=== PATIENT | female | born 2000 | race Caucasian/White ===

== ENCOUNTER 2019-07-13 11:44 | Observation (INO) | payer BC, SELFPAY ==
[2019-07-13 12:16] VITALS: BP 127/64; PULSE 86
[2019-07-13 12:20] VITALS: TEMP 37.3
[2019-07-13 12:40] VITALS: BMI 22.4
--- NOTE | 2019-07-13 14:07 | OBADM ---
This patient, Jayne Bay, admitted to the OB room OB Post [facility] for observation. Patient/family oriented to hospital policies and general routines including ID bracelet, bed and alarms, visiting hours, pain management, procedures, bathroom and other care routines, personal items, smoking policy, room service/diet, and visiting hours. Patient/Family are encouraged to report perceived risks to care and to ask questions if they do not understand what they are told or what they should do.
--- NOTE | 2019-07-13 14:22 | PC.NURSE ---
1241- called,informed pt came in c/o mid-lower back pain and round ligament pain. 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 No contractions noted. Order received to discharge pt home, have her call the office for a note to be off of work until further notice and for them to set up physical therapy.
--- NOTE | 2019-07-18 10:39 | PM.OBTRLD ---
OB - Triage/Final Diagnosis Visit Information Reason for evaluation: threatened labor
== END 2019-07-13 13:05 | disposition home or self-care (01) ==
PROVIDERS: Admitting Provider Obstetrics & Gynecology; PCP Obstetrics & Gynecology; Visit Provider Obstetrics & Gynecology
DX: O47.02 False labor before 37 completed weeks of gestation, second trimester (principal); Z3A.22 22 weeks gestation of pregnancy
CPT/HCPCS: G0378; G0379

== ENCOUNTER 2019-08-26 11:21 | Outpatient (CLI) | payer BC, SELFPAY ==
[2019-08-26 12:50] LABS: Hematocrit 33.3 % (37.0-47.0); Hemoglobin 11.3 g/dL (12.0-15.0)
[2019-08-26 13:04] LABS: Glucose 1 Hour PP 50gm Dose 106 mg/dL
[2019-08-26 13:44] LABS: HIV 1/2 Ab P24 Ag Result Negative (Negative)
== END 2019-08-26 11:22 | disposition home or self-care (01) ==
LOC: ANHLAB 11:25
PROVIDERS: Visit Provider Obstetrics & Gynecology
DX: Z36.89 Encounter for other specified antenatal screening (principal)
CPT/HCPCS: 36415; 82947; 85014; 85018; 86703; G0432

== ENCOUNTER 2019-10-01 22:02 | Observation (INO) | payer BC, SELFPAY ==
[2019-10-01 22:27] VITALS: BP 108/80; PULSE 95
[2019-10-01 22:31] VITALS: BP 114/74; PULSE 110
[2019-10-01 22:45] VITALS: BP 122/74; PULSE 91
[2019-10-01 23:01] VITALS: BP 124/80; PULSE 94
[2019-10-01 23:11] LABS: Add Urine Microscopic? YES; Appearance Urine Cloudy (Clear); Bilirubin Urine Negative (Negative); Blood Urine 1+ (Negative); Color Urine Yellow (Yellow); Glucose Urine UA Negative (Negative); Ketones Urine Trace mg/dL (Negative); Leukocyte Esterase Ur 3+ LEU/UL (Negative); Mucus Urine Few /lpf; Nitrate Urine Negative (Negative); Protein Urine 1+ mg/dL (Negative); RBC Urine 21-50 /hpf (0-2); Specific Grav Ur 1.025 (1.001-1.035); Squamous Epithelial Cell Urine Many /hpf (Few); WBC Urine >75 /hpf
[2019-10-01 23:15] VITALS: BP 125/75; PULSE 89
[2019-10-01 23:30] VITALS: BP 123/73; PULSE 88
--- NOTE | 2019-10-01 23:50 | LDADM ---
This patient, Jayne Bay, was admitted to OB Post 117 on 10/01/19 at 22:02. Plans for labor, pain management and were discussed with patient. Patient/family oriented to hospital policies and general routines including ID bracelet, bed and alarms, visiting hours, pain management, procedures, bathroom and other care routines, personal items, smoking policy, room service/diet and guest tray routines, infant security routines, and visiting hours. Patient/Family are encouraged to report perceived risks to care and to ask questions if they do not understand what they are told or what they should do. See OBIX for further documentation.
--- NOTE | 2019-10-02 00:16 | PC.NURSE ---
4294- Spoke with Dr. Sarah. pt came in c/o lower abd pain and lower back pain and pelvic pain since 5 pm. pt states that she worked 8 hours on her feet today. UA sent- UA results reviewed, culture sent. per Dr. Sarah will wait for culture results before treating pt. tracing reviewed. ok to d/c pt home. office will f/u with pt with culture results. pt educated on importance of oral hydration.
--- NOTE | 2019-10-02 21:14 | PM.OBTRLD ---
OB - Triage/Final Diagnosis Evaluation Laboratory results: Laboratory Tests 10/01/19 22:59 Urine Color Yellow Urine Appearance Cloudy H Urine pH 6.0 Ur Specific [place] 1.025 Urine Protein 1+ H Urine Glucose (UA) Negative Urine Ketones Trace Ur Blood (Man) 1+ H Urine Nitrate Negative Urine Bilirubin Negative Urine Urobilinogen 4.0 H Leukocyte Esterase Rfl 3+ H Urine RBC 21-50 H Urine WBC >75 H Ur Squamous Epith Cells Many H Urine Mucus Few H Vital signs: Vital Signs - 24 hr 10/01/19 22:27 10/01/19 22:31 10/01/19 22:45 Pulse Rate 95 110 H 91 Blood Pressure 108/80 114/74 122/74 10/01/19 23:01 10/01/19 23:15 10/01/19 23:30 Pulse Rate 94 89 88 Blood Pressure 124/80 125/75 123/73 Final Diagnosis (1) Abdominal pain: Code(s): R10.9 - Unspecified abdominal pain Status: Acute
== END 2019-10-02 00:10 | disposition still patient (30) ==
PROVIDERS: Admitting Provider Obstetrics & Gynecology; Visit Provider Obstetrics & Gynecology
DX: O26.899 Other specified pregnancy related conditions, unspecified trimester (principal); R10.9 Unspecified abdominal pain; Z3A.00 Weeks of gestation of pregnancy not specified
CPT/HCPCS: 81001; 87077; 87086; 87088; G0378; G0379

== ENCOUNTER 2019-10-27 16:13 | Inpatient (IN) | payer BC, SELFPAY ==
[2019-10-27] VITALS (60 sets, daily range): BP systolic 88–142; BP diastolic 34–99; PULSE 78–136; TEMP 36.2–36.9; O2SAT 94–100; BMI 24.8
[2019-10-27] MEDS: MORPHINE SULFATE 4 MG/ML INJ IM (16:37)
[2019-10-27] MEDS: LACTATED RINGERS 500 ML 999 ML IV CONT (19:15)
--- NOTE | 2019-10-27 19:27 | LDADM ---
This patient, Jayne Bay, was admitted to Labor/Delivery/Recovery 107 on 10/27/19 at 16:13. Plans for labor, pain management and were discussed with patient. Patient/family oriented to hospital policies and general routines including ID bracelet, bed and alarms, visiting hours, pain management, procedures, bathroom and other care routines, personal items, smoking policy, room service/diet and guest tray routines, security routines, and visiting hours. Patient/Family are encouraged to report perceived risks to care and to ask questions if they do not understand what they are told or what they should do. See OBIX for further documentation.
[2019-10-27 19:47] LABS: Basophils Absolute Auto 0.1 K/mm3 (0.0-0.1); Basophils Percent Auto 0.4 % (0.2-1.2); Eosinophils Percent Auto 0.1 % (0-4.4); Hematocrit 33.3 % (37.0-47.0); Hemoglobin 11.4 g/dL (12.0-15.0); Immature Granulocyte Absolute 0.11 K/mm3 (0.00-0.031); Immature Granulocyte Percent A 0.8 % (0-0.5); Lymphocytes Absolute Auto 1.83 K/mm3 (0.9-3.2); Lymphocytes Percent Auto 13.5 % (18.3-44.2); Mean Corpuscular HGB Conc 34.2 g/dl (32-36); Mean Corpuscular Hemoglobin 30.6 pg (26-34); Mean Corpuscular Volume 89.3 fl (80-100); Mean Platelet Volume 12.9 fl (7.4-10.4); Monocytes Absolute Auto 0.8 K/mm3 (0.1-0.6); Monocytes Percent Auto 6.2 % (2.6-8.5); Neutrophils Absolute Auto 10.7 K/mm3 (1.3-6.7); Platelet Count Result 200 k/mm3 (150-375); Red Blood Count 3.73 M/mm3 (4.2-5.4); White Blood Count 13.5 K/mm3 (4.5-10.0)
[2019-10-27 19:58] LABS: Alanine Aminotransferase 8 U/L (4-35); Albumin Level 3.7 g/dL (3.5-5.1); Alkaline Phosphatase 151 U/L (38-126); Aspartate Amino Transferase 21 U/L (14-36); Bilirubin,Total 0.5 mg/dL (0.2-1.3); Blood Urea Nitrogen 13 mg/dL (7-17); Calcium 8.9 mg/dL (8.4-10.2); Carbon Dioxide 19 mmol/L (22-30); Chloride 100 mmol/L (98-107); Estimated CRCL calculation 124 ml/min; Estimated Glomerular Filt Rate > 60; Glucose 75 mg/dL (65-105); Sodium 128 mmol/L (137-145)
[2019-10-27] MEDS: MORPHINE SULFATE 4 MG/ML INJ IV PUSH (20:02)
[2019-10-27] MEDS: LACTATED RINGERS 1,000 ML 125 ML IV CONT ×2 (20:45→23:15)
--- NOTE | 2019-10-27 21:43 | WPDANESEPPF ---
Anes - Initial Pre Proc Eval Procedure: labor epidural Date/Time: 10/27/19 21:43 Surgeon: Nataly Lynch MD Pre Op Diagnosis: labor pain Pre Op Diagnosis: Contractions Patient Data Age: 19 Gender: F Height: 1.7 m Weight: 72 kg Last Vital Signs Temp 36.8 C 10/27/19 20:00 Pulse 89 10/27/19 21:40 BP 93/52 L 10/27/19 21:40 Pulse Ox 95 10/27/19 21:41 Allergies Allergy/AdvReac Type Severity Reaction Status Date / Time No Known Allergies Allergy Verified 10/24/19 14:57 Home Medications Medication Instructions Recorded Confirmed Type PNV cmb#95-ferrous fumarate-FA 1 tablet PO DAILY 10/24/19 10/24/19 History [] Laboratory Tests 10/27/19 10/27/19 10/27/19 19:01 19:01 19:01 WBC 13.5 K/mm3 H K/mm3 (4.5-10.0) RBC 3.73 M/mm3 L M/mm3 (4.2-5.4) Hgb 11.4 g/dL L g/dL (12.0-15.0) Hct 33.3 % L % (37.0-47.0) MCV 89.3 fl fl (80-100) MCH 30.6 pg pg (26-34) MCHC 34.2 g/dl g/dl (32-36) RDW 13.0 % % (11.5-14.5) Plt Count 200 k/mm3 k/mm3 (150-375) MPV 12.9 fl H fl (7.4-10.4) Immature Gran % (Auto) 0.8 % H % (0-0.5) Neut % (Auto) 79.0 % H % (45.5-73.1) Lymph % (Auto) 13.5 % L % (18.3-44.2) [place] % (Auto) 6.2 % % (2.6-8.5) Eos % (Auto) 0.1 % % (0-4.4) Baso % (Auto) 0.4 % % (0.2-1.2) Lymph # (Auto) 1.83 K/mm3 K/mm3 (0.9-3.2) [place] # (Auto) 0.8 K/mm3 H K/mm3 (0.1-0.6) Eos # (Auto) 0.0 K/mm3 K/mm3 (0-0.3) Baso # (Auto) 0.1 K/mm3 K/mm3 (0.0-0.1) Abs Immat Gran (auto) 0.11 K/mm3 H K/mm3 (0.00-0.031) Absolute Neuts (auto) 10.7 K/mm3 H K/mm3 (1.3-6.7) Absolute Nucleated RBC 0.0 K/mm3 K/mm3 (0.0-0.012) Nucleated RBC % 0.0 % % (0.0-0.2) Sodium 128 mmol/L L mmol/L (137-145) Potassium 4.0 mmol/L mmol/L (3.4-5.0) Chloride 100 mmol/L mmol/L (98-107) Carbon Dioxide 19 mmol/L L mmol/L (22-30) Anion Gap 13.0 mmol/L mmol/L (7-16) BUN 13 mg/dL mg/dL (7-17) Creatinine 0.60 mg/dL L mg/dL (0.7-1.0) Estim Creat Clear Calc 124 ml/min ml/min Estimated GFR > 60 (59 - ) Glucose 75 mg/dL mg/dL (65-105) Calcium 8.9 mg/dL mg/dL (8.4-10.2) Total Bilirubin 0.5 mg/dL mg/dL (0.2-1.3) AST 21 U/L U/L (14-36) ALT 8 U/L U/L (4-35) Alkaline Phosphatase 151 U/L H U/L (38-126) Total Protein 7.0 g/dL g/dL (6.3-8.2) Albumin 3.7 g/dL g/dL (3.5-5.1) RPR Pending Blood Type Antibody Screen 10/27/19 19:01 WBC RBC Hgb Hct MCV MCH MCHC RDW Plt Count MPV Immature Gran % (Auto) Neut % (Auto) Lymph % (Auto) [place] % (Auto) Eos % (Auto) Baso % (Auto) Lymph # (Auto) [place] # (Auto) Eos # (Auto) Baso # (Auto) Abs Immat Gran (auto) Absolute Neuts (auto) Absolute Nucleated RBC Nucleated RBC % Sodium Potassium Chloride Carbon Dioxide Anion Gap BUN Creatinine Estim Creat Clear Calc Estimated GFR Glucose Calcium Total Bilirubin AST ALT Alkaline Phosphatase Total Protein Albumin RPR Blood Type O Positive Antibody Screen Negative Patient hx anesthesia problems: none Family hx anesthesia problems: none [facility] Family History Family History (Updated 10/24/19 @ 14:58 by Lucius Mcintosh RN) Other Unknown family medical history Social History Social History Smoking status: Never smoker Substance use: never Spiritual care concerns: No A
[2019-10-27] MEDS: ONDANSETRON INJ 4 MG/2 ML VIAL IV PUSH (22:44)
[2019-10-28] VITALS (91 sets, daily range): BP systolic 109–142; BP diastolic 51–105; PULSE 76–128; RESP 16–20; TEMP 36.3–37.4; O2SAT 97–100
[2019-10-28] MEDS: LACTATED RINGERS 1,000 ML 125 ML IV CONT ×2 (04:44→11:08)
[2019-10-28] MEDS: FAMOTIDINE 20 MG/2 ML VIAL IV PUSH (04:47)
[2019-10-28] MEDS: ONDANSETRON INJ 4 MG/2 ML VIAL IV PUSH (08:07)
--- NOTE | 2019-10-28 09:13 | PM.IMHP ---
H&P: HPI History of Present Illness Date/Time: 10/28/19 09:13 Chief complaint: Contractions Narrative: Jayne Bay is a 19 year old female at 37w4d who intially presented to L&D with contractions. She was noted to make cervical change and jeffery regularly. She states she had painful contractions, but now is more comfortable with spinal anesthesia in place. Review of Systems Constitutional: Constitutional: Reports no additional constitutional complaints Cardiovascular: Cardiovascular: Reports no additional cardiovascular complaints Respiratory: Respiratory: Reports no additional respiratory complaints Gastrointestinal: Gastrointestinal: Reports no additional gastrointestinal complaints Genitourinary: Genitourinary: Reports no additional female genitourinary complaints Musculoskeletal: Musculoskeletal: Reports no additional musculoskeletal complaints Neurologic: Reports system reviewed and no additional complaints, except as documented Psychiatric: Psychiatric: Reports no additional psychiatric complaints [facility] Surgical History Surgical History Hx of tonsillectomy Family History Family History Other Unknown family medical history Social History Social History Smoking status: Never smoker Substance use: never Spiritual care concerns: No Meds Home Medications and Allergies Home Medications Medication Instructions Recorded Confirmed Type PNV cmb#95-ferrous fumarate-FA 1 tablet PO DAILY 10/24/19 10/24/19 History [] Allergies Allergy/AdvReac Type Severity Reaction Status Date / Time No Known Allergies Allergy Verified 10/24/19 14:57 Vital Signs Vital Signs - 24 hr 10/27/19 15:52 10/27/19 16:01 10/27/19 16:31 Temperature Pulse Rate 100 90 83 Blood Pressure 142/99 H 136/88 124/86 Pulse Oximetry 10/27/19 16:45 10/27/19 17:01 10/27/19 17:31 Temperature 36.6 C Pulse Rate 81 84 Blood Pressure 132/74 134/83 Pulse Oximetry 10/27/19 17:50 10/27/19 18:01 10/27/19 18:31 Temperature 36.9 C Pulse Rate 82 82 Blood Pressure 134/85 129/79 Pulse Oximetry 10/27/19 19:01 10/27/19 19:31 10/27/19 20:00 Temperature 36.8 C Pulse Rate 81 81 Blood Pressure 131/82 129/74 Pulse Oximetry 10/27/19 20:01 10/27/19 20:31 10/27/19 20:42 Temperature Pulse Rate 80 78 82 Blood Pressure 131/77 126/69 134/71 Pulse Oximetry 10/27/19 21:01 10/27/19 21:16 10/27/19 21:21 Temperature Pulse Rate 89 Blood Pressure 141/88 H Pulse Oximetry 100 100 10/27/19 21:23 10/27/19 21:25 10/27/19 21:28 Temperature Pulse Rate 105 H 109 H 96 Blood Pressure 140/84 141/68 H 137/71 Pulse Oximetry 10/27/19 21:31 10/27/19 21:33 10/27/19 21:35 Temperature Pulse Rate 104 H 131 H 136 H Blood Pressure 122/70 106/58 L 104/60 Pulse Oximetry 100 10/27/19 21:36 10/27/19 21:37 10/27/19 21:40 Temperature 36.2 C L Pulse Rate 111 H 89 Blood Pressure 92/59 L 93/52 L Pulse Oximetry 96 10/27/19 21:41 10/27/19 21:43 10/27/19 21:46 Temperature Pulse Rate 91 79 Blood Pressure 96/46 L 88/66 L Pulse Oximetry 95 99 10/27/19 21:51 10/27/19 21:53 10/27/19 21:54 Temperature Pulse Rate 89 94 Blood Pressure 94/35 L 89/34 L Pulse Oximetry 94 10/27/19 21:55 10/27/19 21:58 10/27/19 21:59 Temperature Pulse Rate 83 93 Blood Pressure 96/41 L 115/70 Pulse Oximetry 94 10/27/19 22:01 10/27/19 22:04 10/27/19 22:08 Temperature Pulse Rate 93 96 93 Blood Pressure 121/57 L 117/60 119/62 Pulse Oximetry 94 10/27/19 22:09 10/27/19 22:14 10/27/19 22:16 Temperature Pulse Rate 92 Blood Pressure 117/70 Pulse Oximetry 97 98 10/27/19 22:19 10/27/19 22:24 10/27/19 22:29 Temperature Pulse Rate Blood Pres
[2019-10-28] MEDS: OXYTOCIN 30 UNITS/NS 500 ML 30 UNITS/500 ML BAG 6 UNITS IV CONT (09:15)
--- NOTE | 2019-10-28 10:58 | P.PNOB_ITS ---
OB - PN: Subj Subjective Date/time seen: 10/28/19 10:58 Patient reassessed, concern for breech presentation. Bedside US performed. Breech presentation confirmed. OB - PN: Obj Data Labs CBC & Chem 7: 10/27/19 19:01 10/27/19 19:01 Labs: Laboratory Results - last 24 hr 10/27/19 10/27/19 10/27/19 19:01 19:01 19:01 WBC 13.5 H RBC 3.73 L Hgb 11.4 L Hct 33.3 L MCV 89.3 MCH 30.6 MCHC 34.2 RDW 13.0 Plt Count 200 MPV 12.9 H Immature Gran % (Auto) 0.8 H Neut % (Auto) 79.0 H Lymph % (Auto) 13.5 L [place] % (Auto) 6.2 Eos % (Auto) 0.1 Baso % (Auto) 0.4 Lymph # (Auto) 1.83 [place] # (Auto) 0.8 H Eos # (Auto) 0.0 Baso # (Auto) 0.1 Abs Immat Gran (auto) 0.11 H Absolute Neuts (auto) 10.7 H Absolute Nucleated RBC 0.0 Nucleated RBC % 0.0 Sodium 128 L Potassium 4.0 Chloride 100 Carbon Dioxide 19 L Anion Gap 13.0 BUN 13 Creatinine 0.60 L Estim Creat Clear Calc 124 Estimated GFR > 60 Glucose 75 Calcium 8.9 Total Bilirubin 0.5 AST 21 ALT 8 Alkaline Phosphatase 151 H Total Protein 7.0 Albumin 3.7 Blood Type O Positive Antibody Screen Negative OB - PN A/P Assessment and Plan (1) Breech presentation: Code(s): O32.1XX0 - Maternal care for breech presentation, not applicable or unspecified Status: Acute Assessment and Plan: Discussed risks, benefits, and alternatives to management. Decision made to proceed with section for breech presentation Time Spent With Patient Time: Total time spent is greater than 50% in coordination of care (as documented) at patient's floor/unit and/or counseling patient:
[2019-10-28] MEDS: ceFAZolin 2 GM/D5W 50 ML 2 GM/50 ML BAG IVPB (11:08)
--- NOTE | 2019-10-28 12:44 | PM.OP ---
Procedure Note - Brief Procedure Note - Brief Date of procedure: 10/28/19 Pre-op diagnosis: Contractions Active Labor Breech presentation Post-op diagnosis: same Procedure performed: Primary low transverse section Anesthesia: spinal Surgeon: Lauryn Sarah DO Estimated blood loss (mL): 550 Drains: No Packing: No Pathology: none sent Complications: No immediate complications Condition: stable Disposition: other Findings: Single liver female in breech presentation
--- NOTE | 2019-10-28 12:46 | PM.OBPRVD ---
OB - Delivery Note Procedure Delivery date: 10/28/19 Procedure: Procedures Operation Date: 10/28/19 11:15 Actual Procedures Side Surgeon p Section Bilateral Lauryn Sarah DO Intrapartal events: None Induction method: none Route of delivery: (primary low transverse) Specimen: No Estimated blood loss (mL): 550 Anesthesia type: Spinal Narrative: Patient was transferred to the OR table and once adequate anesthesia was established, she was placed in dorsal position with left tilt of the hips. Preoperative antibiotics were administered. A timeout was performed to identify the correct patient and procedure. A pfannenstiel skin incision was made with the scalpel. Subsequent dissection of the subcutaneous layer was performed with the scalpel down to the level of the fascia. Bovie was used to obtain hemostasis from small bleeding vessels. The fascia was nicked at the midline. Fasical incision was extended laterally with Jimenez scissors. Ngozi clamps were used to tent the superior aspect of the fascia up and the rectus muscles were carefully dissected off the fascia. Attention was then turned to the inferior aspect of the fascia and this was tented up with the Ngozi clamps and rectus muscles dissected off the fascia. The rectus muscles were divided at the midline and the peritoneum was bluntly entered. Adis self-retaining retractor was inserted. A low transverse uterine incision was made. This was extended bluntly with cephalad and caudad force. Amniotic sac was entered and meconium stained fluid was noted. The was noted to be in john breech position. The hips were elevated to the hysterotomy and delivered. Followed by the legs. the was then rotated and the right arm was swept out and delivered. The was rotated again and left arm was delivered. The head was flexed and delivered. Cord was clamped and cut and was handed off the nursing staff. Placenta was expressed. Hysterotomy was examined for any extensions and no extensions were noted. This was reapproximated with 0 Vicryl in continuous locking fashion. Good hemostasis noted. Bilateral ovaries and fallopian tubes appeared normal. Paracolic gutter were cleaned of any clots.The fascia was then reapproximated with 0 Vicryl in continous non-locking fashion. The skin was reapproximated with 4-0 Monocryl in subcuticular fashion. Sterile bandage was applied. All sponge and instrument counts were correct during and at the end of the procedure. Patient tolerated the procedure was well and was transferred to recovery. [place] Baby Date of : 10/28/19 Time of : 12:10 Weeks of gestation at delivery: 37 gender: Female Weight (pounds): 7 Weight (ounces): 1 presentation: john breech Placenta delivery description: Expressed cord vessel description: 3 Vessels score one minute: 8 score five minutes: 9
[2019-10-28] MEDS: KETOROLAC 30 MG/ML VIAL (*BKC) IV PUSH (14:15)
[2019-10-28] MEDS: MORPHINE SULFATE 2 MG/ML INJ IV PUSH ×3 (14:15→14:55)
[2019-10-28] MEDS: diphenhydrAMINE HCl INJ 50 MG/ML VIAL 12.5 MG IV PUSH (14:55)
--- NOTE | 2019-10-28 15:03 | PC.NURSE ---
RECOVERY COMPLETE AND AWAIT TO GIVE REPORT UPSTAIRS. ASSESSMENT REMAINS STABLE. IV FLUSHED AND WILL START NEXT BAG UPSTAIRS. BLANCO DRAINING CLEAR YELLOW URINE. DRESSING WITH SOME SMALL DRAINAGE THAT IS MARKED AT 1350. FUNDUS FIRM, DEEP AND RUBRA LOCHIA. WILL CLEAN UP UPSTAIRS. MOM HOLDING BABY AFTER 45 MINUTES WELL. TRANSPORT VIA STRETCHER AND REPOR TO LORENA BARRIOS RN.
[2019-10-28] MEDS: COSYNTROPIN 0.25 MG/ML VIAL 1 MG IV PUSH (16:58)
--- NOTE | 2019-10-28 18:54 | PC.NURSE ---
1545 Normal Saline 500cc with Pitocin 30un started at 125cc per hour.
[2019-10-29 04:50] VITALS: BP 126/82; PULSE 103; RESP 16; TEMP 36.7
[2019-10-29] MEDS: IBUPROFEN 600 MG TABLET PO ×3 (05:15→17:27)
[2019-10-29 05:17] LABS: Basophils Percent Auto 0.3 % (0.2-1.2); Eosinophils Percent Auto 0.1 % (0-4.4); Hematocrit 27.8 % (37.0-47.0); Hemoglobin 9.3 g/dL (12.0-15.0); Immature Granulocyte Absolute 0.11 K/mm3 (0.00-0.031); Immature Granulocyte Percent A 0.9 % (0-0.5); Lymphocytes Absolute Auto 1.31 K/mm3 (0.9-3.2); Lymphocytes Percent Auto 11.3 % (18.3-44.2); Mean Corpuscular HGB Conc 33.5 g/dl (32-36); Mean Corpuscular Hemoglobin 30.5 pg (26-34); Mean Corpuscular Volume 91.1 fl (80-100); Mean Platelet Volume 12.5 fl (7.4-10.4); Monocytes Absolute Auto 0.9 K/mm3 (0.1-0.6); Monocytes Percent Auto 7.8 % (2.6-8.5); Neutrophils Absolute Auto 9.2 K/mm3 (1.3-6.7); Neutrophils Percent Auto 79.6 % (45.5-73.1); Platelet Count Result 156 k/mm3 (150-375); Red Blood Count 3.05 M/mm3 (4.2-5.4); Red Cell Distribution Width 13.2 % (11.5-14.5); White Blood Count 11.6 K/mm3 (4.5-10.0)
[2019-10-29 07:45] VITALS: BP 132/83; PULSE 94; RESP 18; TEMP 37.1; O2SAT 99
[2019-10-29] MEDS: DOCUSATE SODIUM 100 MG CAPSULE PO ×2 (08:36→16:21)
[2019-10-29] MEDS: POLYSACCHARIDE IRON COMPLEX 150 MG CAPSULE PO ×2 (08:36→16:21)
[2019-10-29] MEDS: MULTIVIT/MIN/PREN/FOL AC/IRON TABLET 1 TAB PO (08:36)
[2019-10-29] MEDS: SIMETHICONE 80 MG TAB.CHEW PO ×2 (08:39→12:01)
--- NOTE | 2019-10-29 09:45 | PM.OBPNVD ---
OB - PN: Subj Subjective Date/time seen: 10/29/19 09:45 Patient comments: incisional pain [place] baby status: doing well feeding status: exclusively breast feeding Narrative: Having some headaches and shoulder pain. May be related to spinal. Improves with pain medication, but comes back when medication wears off. Having soreness around incision site. Tolerating diet. Ambulating. Voiding freely and passing flatus. OB - PN: Obj Data Labs CBC & Chem 7: 10/29/19 04:46 10/27/19 19:01 Labs: Laboratory Results - last 24 hr 10/29/19 04:46 WBC 11.6 H RBC 3.05 L Hgb 9.3 L Hct 27.8 L MCV 91.1 MCH 30.5 MCHC 33.5 RDW 13.2 Plt Count 156 MPV 12.5 H Immature Gran % (Auto) 0.9 H Neut % (Auto) 79.6 H Lymph % (Auto) 11.3 L [place] % (Auto) 7.8 Eos % (Auto) 0.1 Baso % (Auto) 0.3 Lymph # (Auto) 1.31 [place] # (Auto) 0.9 H Eos # (Auto) 0.0 Baso # (Auto) 0.0 Abs Immat Gran (auto) 0.11 H Absolute Neuts (auto) 9.2 H Absolute Nucleated RBC 0.0 Nucleated RBC % 0.0 OB - PN A/P Assessment and Plan (1) Status post primary low transverse section: Code(s): Z98.891 - History of uterine scar from previous surgery Status: Acute Assessment and Plan: Routine postop/ care Ambulate Pain management Time Spent With Patient Time: Total time spent is greater than 50% in coordination of care (as documented) at patient's floor/unit and/or counseling patient: Review of Systems Constitutional: Constitutional: Reports no additional constitutional complaints Cardiovascular: Cardiovascular: Reports no additional cardiovascular complaints Respiratory: Respiratory: Reports no additional respiratory complaints Gastrointestinal: Gastrointestinal: Reports no additional gastrointestinal complaints Genitourinary: Genitourinary: Reports no additional female genitourinary complaints Exam Const: General: comfortable, no acute distress, alert and awake Orientation/consciousness: patient oriented x3 Resp: Effort & Inspection: normal respiratory effort Auscultation: clear to auscultation bilaterally Cardio: Rate: regular rate GI: Other: soft, some tenderness to palpation. Incision C/D/I. Steristrips in place. Psych: Appearance: grossly normal Mental Status: mental status grossly normal Affect: normal affect Attitude: cooperative Judgement: Good judgement present (Psych)
--- NOTE | 2019-10-29 12:20 | WPDANLDPN2 ---
Anes-Prog Note L&D Date/Time: 10/29/19 12:20 Comfortable throughout: labor and section Neuraxial method: spinal (intrathecal catheter) Epidural/Spinal procedure site: clean & non-tender Neuro status: Neuro function grossly intact. Cardiovascular status: normal Respiratory status: normal Airway patency: baseline Mental status: baseline Post-Op hydration status: normal Vital Signs: Last Vital Signs Temp 36.7 C 10/29/19 04:50 Pulse 103 H 10/29/19 04:50 Resp 16 10/29/19 04:50 BP 126/82 10/29/19 04:50 Pulse Ox 97 10/28/19 14:50 I/O: Intake & Output 10/28/19 10/29/19 10/29/19 23:59 07:59 15:59 Intake Total 1000 Output Total 3800 Balance -2800 Post-procedural complaints: other (Headache, Dr Robins present and discussed Blood patch vs conservative treatment and pt opts for conservative treatment) Patient feedback: Patient satisfied with anesthetic care.
--- NOTE | 2019-10-29 12:22 | WPDANLDNPN2 ---
Anes-Prog Note L&D-Neuraxial Date/Time: 10/29/19 12:22 Neuraxial medications: epidural PF morphine Opiod-related complaints: headache Patient feedback: Patient satisfied with post-operative pain management.
--- NOTE | 2019-10-29 18:55 | PC.NURSE ---
@ 1855 I entered the patient's room and she is sound asleep. Orders received from CATHODE MAKER to start fluids and give dose of Dilaudid IV push, RN is going to let patient sleep as she hasn't been able to rest all day. Upon awakening I will start fluids and offer the Dilaudid to patient.
--- NOTE | 2019-10-29 19:17 | PC.NURSE ---
Addendum entered by Camryn Reyes RN 10/29/19 19:35: Overall pt has had a poor day, with pain, and little rest. Nurse has made strong efforts to encourage her, instruct her and provide meds and treatments to help her. Original Note: 1830 Initially this a.m., pt reported that her headache had resolved. By noon, headache rated at a 7 and incision pain at a 10. Reviewed pain scale with pt. Medication given at that time, and over the next several hours, pt seemed to feel better. At 3 pm, nurse offered more pain medication and pt declined. by 1620 pt crying with c/o head and neck pain and abdominal pain; it's often difficult to determine from pt where she is hurting. Pt has a k-pad to her abdomen, and one brought in for her shoulders and neck that it took several hours for pt to let nurse place the k-pad under her shoulders. Additional pain meds given at 1717 and 1727. baby taken to nursery so mother could rest; pt's mother with her. Earlier in the day, pt did not want baby to leave the room; baby under phototherapy, and mother unable to be up to care for baby. At this time mother allowed baby to go to nursery. 1745 pt assisted to bathroom, by nurse. 1830 pt sound asleep. This afternoon, pt has been visited by 2 LOG DECKMAN's to evaluate her c/o headache. Pt has eaten very little today, and poor po fluid intake, inspite of nurse's encouragement to try drink fluids, and caffeine. a pitcher of tea was sent from the kitchen for pt. Pt does not seem accepting of advice or instruction on ways to help herself. She has seemed resistant to assistance with breast feeding.
[2019-10-29 21:45] VITALS: BP 135/83; PULSE 82; RESP 16; TEMP 37; O2SAT 100
[2019-10-29] MEDS: LACTATED RINGERS 1,000 ML 100 ML IV CONT (21:55)
[2019-10-30] MEDS: IBUPROFEN 600 MG TABLET PO ×3 (01:17→15:42)
[2019-10-30 07:40] VITALS: BP 132/86; PULSE 92; RESP 18; TEMP 37.7; O2SAT 97
[2019-10-30 08:21] LABS: Rapid Plasma Reagin Non-Reactive (NonReactive)
[2019-10-30] MEDS: POLYSACCHARIDE IRON COMPLEX 150 MG CAPSULE PO (08:23)
[2019-10-30] MEDS: MULTIVIT/MIN/PREN/FOL AC/IRON TABLET 1 TAB PO (08:23)
[2019-10-30] MEDS: DOCUSATE SODIUM 100 MG CAPSULE PO (08:24)
[2019-10-30] MEDS: LANOLIN (LANSINOH) 7.5 GM CREAM 1 APPLIC TOPICAL (08:28)
--- NOTE | 2019-10-30 11:50 | PC.NURSE ---
Consult with pt., mother reports she is now attempting to breast a few minutes, she will then bottle feed formula. Mother states she breastfed first day, had jaundice and required supplementation she has since bottle fed. Discussed feeding freq with bottle of every 3-4 hours and every 2-3 with breast, advising time to wake infant for feeding. Mother reports she attempted and infant was sleepy. Advised infant has to be fed by 4 hours from last feeding if formula. Demonstrated stimulation techniques to wake, mother does not wish to put infant to breast at this time. Offered to assist with pumping if she chooses, mother reports she has a pump for home use and will initiate pumping once at home. Instructions given on breast pump care and usage, pumping schedule, nipple care, and collection and storage of breast milk. Encouraged [id number], breast massage and manual expression to stimulate supply. Mother states for now she will continue with formula feeding until she is comfortable her milk is in and jaundice has resolved. Suggested mother put infant to breast each feeding for a few minutes then bottle feed at least 30mls each feeding.
--- NOTE | 2019-10-30 12:34 | PM.OBPNVD ---
OB - PN: Subj Subjective Date/time seen: 10/30/19 12:34 Narrative: Having some upper back and shoulder pain today. Otherwise doing well. No issues OB - PN: Obj Data Labs CBC & Chem 7: 10/29/19 04:46 10/27/19 19:01 Labs: Laboratory Results - last 24 hr 10/27/19 19:01 RPR Non-reactive OB - PN A/P Assessment and Plan (1) Status post primary low transverse section: Code(s): Z98.891 - History of uterine scar from previous surgery Status: Acute Assessment and Plan: Routine postop/ care Ambulate Pain management Would like to go home today, ok for DC home (2) Back pain: Code(s): M54.9 - Dorsalgia, unspecified Status: Acute Assessment and Plan: Upper back pain musculoskeletal. Some relief with massage. Advised stretching and heat packs. Time Spent With Patient Time: Total time spent is greater than 50% in coordination of care (as documented) at patient's floor/unit and/or counseling patient: Exam Const: General: comfortable, no acute distress, alert and awake Orientation/consciousness: patient oriented x3 Resp: Effort & Inspection: normal respiratory effort Auscultation: clear to auscultation bilaterally Cardio: Rate: regular rate GI: Other: soft, some tenderness to palpation. Incision C/D/I. Steristrips in place. : Other: 6/80/-2, AROM performed meconium Neuro: General: patient oriented x3 Speech: normal speech Psych: Appearance: grossly normal Mental Status: mental status grossly normal Affect: normal affect Attitude: cooperative Judgement: Good judgement present (Psych)
--- NOTE | 2019-10-30 12:36 | P.DS_ITS ---
DS: Admitting Diagnosis Admitting Diagnosis Admitting Diagnosis: Encounter for supervision of normal , unspecified, unspecified trimester Active labor Breech presentation DS: Discharge Diagnosis Discharge Diagnosis (1) Status post primary low transverse section: Code(s): Z98.891 - History of uterine scar from previous surgery Status: Acute Assessment and Plan: Routine postop/ care Ambulate Pain management Would like to go home today, ok for DC home (2) Back pain: Code(s): M54.9 - Dorsalgia, unspecified Status: Acute Assessment and Plan: Upper back pain musculoskeletal. Some relief with massage. Advised stretching and heat packs. OB - DS: Summary OB Procedures : None OB Procedures Intrapartum: (repeat) low cervical, transverse OB Procedures: : None Peripartum Data Procedures: Procedures Operation Date: 10/28/19 11:15 Actual Procedures Side Surgeon p Section Bilateral Lauryn Sarah DO complications: none Status at Discharge Functional status at discharge: independent ambulation Overall status at discharge: patient is progressing back to baseline Time Spent with Patient Time attestation: Total time spent providing and/or coordinating discharge services: Exam Const: General: comfortable, no acute distress, alert and awake Orientation/consciousness: patient oriented x3 Resp: Effort & Inspection: normal respiratory effort Auscultation: clear to auscultation bilaterally Cardio: Rate: regular rate GI: Other: soft, some tenderness to palpation. Incision C/D/I. Steristrips in place. Neuro: General: patient oriented x3 Speech: normal speech Psych: Appearance: grossly normal Mental Status: mental status grossly normal Affect: normal affect Attitude: cooperative Judgement: Good ju dgement present (Psych) DS: Data Data Completed and Pending Pending studies at discharge: Pending at discharge 10/28/19 12:11 Surgical [PTH] Routine Labs on day of discharge: Labs from last 24 hours 10/27/19 19:01 RPR Non-reactive Discharge Plan Discharge Attending physician on discharge: Lauryn Sarah Discharging Clinician: Lauryn Sarah Patient Disposition: Home, Self-Care Activity: may shower, no straining, no driving and pelvic rest Diet: regular Patient Instructions: Antibiotic Form Stand Alone Forms: General Discharge Information Follow-up/Referrals: Lauryn Sarah DO [Physician] - Discharge Medications: New hydrocodone-acetaminophen 5-325 mg Tablet 1 tab PO Q3H PRN (Reason: Moderate Pain (4-6)) Qty: 20 RF: 0 polysaccharide iron complex 150 mg iron Capsule 150 mg PO BIDWM Qty: 60 RF: 0 docusate sodium 100 mg Capsule 100 mg PO BID Qty: 60 RF: 0 ibuprofen 600 mg Tablet 600 mg PO Q6H PRN (Reason: Cramping) Qty: 90 RF: 0 No Action PNV cmb#95-ferrous fumarate-FA [] 28 mg iron- 800 mcg Tablet 1 tablet PO DAILY RF: 0 Date of admission: 10/27/19 16:13 Primary Care Provider: PHYSICIAN,MEMBER OF TECHNICAL STAFF Admitting Provider: Nataly Lynch Attending physician on admission: Nataly Lynch
== END 2019-10-30 16:20 | disposition home or self-care (01) | DRG 540 ==
LOC: ANHOB2 10-30 15:08 → ANHLDR 10-31 11:16 → ANHOB2 10-31 11:16
PROVIDERS: Admitting Provider Obstetrics & Gynecology; Visit Provider Obstetrics & Gynecology
PROC: 10D00Z1 Extraction of Products of Conception, Low, Open Approach (ICD-10-PCS; CPT 59514; principal; 2019-10-28 11:15)
DX: O32.1XX0 Maternal care for breech presentation, not applicable or unspecified (principal); Z37.0 Single live birth; Z3A.37 37 weeks gestation of pregnancy; O89.4 Spinal and epidural anesthesia-induced headache during the puerperium
CPT/HCPCS: 36415; 80053; 85025; 86592; 86850; 86900; 86901; 88307; A9270; J0131; J0690; J0834; J1200; J1885; J2270; J2274; J2405; J2590; J2795; J3010; J7120

== ENCOUNTER 2020-10-22 19:49 | Emergency (ER) | payer OTHER, SELFPAY ==
[2020-10-22 21:14] VITALS: BP 116/70; PULSE 108; RESP 12; TEMP 37; O2SAT 100
[2020-10-22 22:06] LABS: Basophils Percent Auto 0.3 % (0.2-1.2); Eosinophils Absolute Auto 0.1 K/mm3 (0-0.3); Hematocrit 42.3 % (37.0-47.0); Immature Granulocyte Absolute 0.02 K/mm3 (0.00-0.031); Immature Granulocyte Percent A 0.3 % (0-0.5); Lymphocytes Absolute Auto 0.79 K/mm3 (0.9-3.2); Lymphocytes Percent Auto 13.7 % (18.3-44.2); Mean Corpuscular HGB Conc 33.1 g/dl (32-36); Mean Corpuscular Hemoglobin 30.6 pg (26-34); Mean Corpuscular Volume 92.4 fl (80-100); Mean Platelet Volume 10.3 fl (7.4-10.4); Monocytes Absolute Auto 0.6 K/mm3 (0.1-0.6); Monocytes Percent Auto 10.6 % (2.6-8.5); Neutrophils Absolute Auto 4.3 K/mm3 (1.3-6.7); Neutrophils Percent Auto 74.1 % (45.5-73.1); Platelet Count Result 205 k/mm3 (150-375); Red Blood Count 4.58 M/mm3 (4.2-5.4); Red Cell Distribution Width 12.7 % (11.5-14.5); White Blood Count 5.8 K/mm3 (4.5-10.0)
--- NOTE | 2020-10-22 22:15 | ED.NAVMDI ---
HPI - Nausea/Vomiting/Diarrhea General Chief complaint: Nausea/Vomiting/Diarrhea Stated complaint: muscle aches Time Seen by Provider: 10/22/20 22:00 History of Present Illness HPI Narrative: Patient is a 20-year-old female who presents ER with nausea and fatigue. 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 She is concerned she may be unwell related to this. She also brought her child in to be evaluated because the child has not been eating well for the last couple days. Patient denies any fevers or chills or sweats. No loss of taste or smell. She has had a slight cough over the last day but no shortness of breath or chest pain or chest pressure. Has not tried any medications. Related Data Home Medications Medication Instructions Recorded Confirmed PNV cmb#95-ferrous fumarate-FA 1 tablet PO DAILY 10/24/19 10/24/19 [] Allergies Allergy/AdvReac Type Severity Reaction Status Date / Time No Known Allergies Allergy Verified 10/31/19 12:30 Review of Systems Review of Systems: All systems reviewed & are unremarkable except as noted in HPI and below Constitutional: Constitutional: Denies chills, Denies fever(s) and Denies weakness ENT: Denies nasal congestion and Denies sore throat Cardiovascular: Cardiovascular: Denies chest pain and Denies radiating jaw, neck or arm pain Respiratory: Respiratory: Reports cough, Denies dyspnea and Denies wheezing Gastrointestinal: Gastrointestinal: Denies abdominal pain, Reports nausea and Denies vomiting Genitourinary: Genitourinary: Denies nocturia and Denies dysuria [facility] Past Medical History Medical History (Updated 10/22/20 @ 22:49 by William Hobson MD) Anxiety Surgical History Surgical History (Updated 10/22/20 @ 22:17 by William Hobson MD) History of section Hx of tonsillectomy Family History Family History (System 10/31/19 @ 12:30 by Beth Angel) Other Unknown family medical history Social History Social History (System 10/31/19 @ 12:30 by Beth Angel) Smoking status: Never smoker Substance use: never Gender identity (if verbalized by the patient): Female Spiritual care concerns: No Exam Narrative: Exam Narrative: GENERAL: Well-appearing, well-nourished, and in no acute distress. HEAD: Normocephalic, atraumatic. CHEST: Clear to auscultation. No respiratory distress. HEART: Regular rate and rhythm. Normal peripheral pulses. ABDOMEN: Soft, nontender, nondistended. EXTREMITIES: Normal range of motion. No edema. NEURO: Alert and oriented x3. PSYCH: Normal mood and affect. Course Course Emergency Course: Unremarkable evaluation. No urinary symptoms so urine was not collected. Discharge home. Patient had no nausea here and did not require any intervention. Vital Signs Vital signs: Vital Signs Temperature 98.6 F 10/22/20 21:14 Pulse Rate 108 H 10/22/20 21:14 Respiratory Rate 12 10/22/20 21:14 Blood Pressure 116/70 10/22/20 21:14 Pulse Oximetry 100 10/22/20 21:14 Temperature 98.6 F 10/22/20 22:25 Pulse Rate 98 10/22/20 22:25 Respiratory Rate 18 10/22/20 22:25 Blood Pressure 116/70 10/22/20 22:25 Pulse Oximetry 99 10/22/20 22:25 MDM - Nausea/Vomiting/Diarrhea Lab Data Result diagrams: 10/22/20 21:57 10/22/20 21:57 Labs: Lab Results 10/22/20 10/22/20 Range/Units 21:57 21:57 WBC 5.8 (4.5-10.0) K/mm3 RBC 4.58 (4.2-5.4) M/mm3 Hgb 14.0 D (12.0-15.0) g/dL Hct 42.3 (37.0-47.0) % MCV 92.4 (80-100) fl MCH 30.6 (26-34) pg MCHC 33.1 (32-36) g/dl RDW 12.7 (11.5-14.5) % Plt Count 205 (150-375) k/mm3 MPV 10.3 (7.4-10.4) fl Immature Gran % (Auto) 0.3 (0-0.5) % Neut % (Auto) 74.1 H (45.5-73.1) % Lymph % (Auto) 13.7 L (18.3-44.2) % [place] % (Auto) 10.6 H (2.6-8.5) % Eos % (Auto) 1.0 (0-4.4) % Baso % (Auto) 0.3 (0.2-1.2) % Lymph #
[2020-10-22 22:18] LABS: Alanine Aminotransferase 26 U/L (4-35); Albumin Level 4.7 g/dL (3.5-5.1); Alkaline Phosphatase 84 U/L (38-126); Anion Gap 10 mmol/L (8-16); Aspartate Amino Transferase 27 U/L (14-36); Bilirubin,Total 0.5 mg/dL (0.2-1.3); Blood Urea Nitrogen 8 mg/dL (7-17); Calcium 9.3 mg/dL (8.4-10.2); Carbon Dioxide 29 mmol/L (22-30); Chloride 98 mmol/L (98-107); Estimated CRCL calculation 107 ml/min; Estimated Glomerular Filt Rate > 60; Glucose 85 mg/dL (65-110); Lipase 52 U/L (23-300); Potassium 3.5 mmol/L (3.4-5.0); Sodium 137 mmol/L (137-145)
[2020-10-22 22:25] VITALS: BP 116/70; PULSE 98; RESP 18; TEMP 37; O2SAT 99
== END 2020-10-22 22:59 | disposition home or self-care (01) ==
PROVIDERS: Emergency Provider Emergency Medicine
DX: R11.0 Nausea (principal)
CPT/HCPCS: 36415; 80053; 83690; 85025; 99283

== ENCOUNTER 2021-06-16 16:59 | Emergency (ER) | payer OTHER, SELFPAY ==
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
[2021-06-16 17:04] VITALS: BP 129/74; PULSE 102; RESP 18; TEMP 37; O2SAT 100
[2021-06-16 17:54] VITALS: BP 123/76; PULSE 90; RESP 14; O2SAT 98
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
[2021-06-16] MEDS: MORPHINE SULFATE (*CRX) 4 MG/ML INJ 2 MG IV PUSH (18:52)
[2021-06-16] MEDS: ONDANSETRON INJ 4 MG/2 ML VIAL IV PUSH (18:52)
[2021-06-16 20:10] VITALS: BP 122/70; PULSE 78; RESP 16; O2SAT 100
== END 2021-06-16 20:48 | disposition home or self-care (01) ==
PROVIDERS: Emergency Provider Emergency Medicine
DX: S16.1XXA Strain of muscle, fascia and tendon at neck level, initial encounter (principal); V43.52XA Car driver injured in collision with other type car in traffic accident, initial encounter
CPT/HCPCS: 70450; 70486; 72125; 73562; 96374; 96375; 99284; J2270; J2405

== ENCOUNTER 2021-06-20 16:35 | Emergency (ER) | payer OTHER, SELFPAY ==
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
[2021-06-20 16:40] VITALS: BP 112/60; PULSE 82; RESP 18; TEMP 36.8; O2SAT 100
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
[2021-06-20] MEDS: KETOROLAC (*BKC) 60 MG/2 ML VIAL IM (17:45)
== END 2021-06-20 18:33 | disposition home or self-care (01) ==
PROVIDERS: Emergency Provider Nurse Practitioner Family
DX: S39.92XA Unspecified injury of lower back, initial encounter (principal); S16.1XXA Strain of muscle, fascia and tendon at neck level, initial encounter; V49.9XXA Car occupant (driver) (passenger) injured in unspecified traffic accident, initial encounter
CPT/HCPCS: 72100; 96372; 99283; J1885

== ENCOUNTER 2022-09-09 20:48 | Emergency (ER) | payer OTHER, SELFPAY ==
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
[2022-09-09 21:07] VITALS: BP 119/69; PULSE 93; RESP 18; TEMP 37.1; O2SAT 100
[2022-09-10 00:40] LABS: Appearance Urine Turbid (Clear); Bacteria Urine 4+ /hpf; Bilirubin Urine Negative (Negative); Blood Urine 3+ (Negative); Color Urine Yellow (Yellow); Glucose Urine UA Negative (Negative); Ketones Urine Negative (Negative); Leukocyte Esterase Ur 2+ LEU/UL (Negative); Nitrate Urine Positive (Negative); Non Pathogenic Casts 0-2; Protein Urine 3+ mg/dL (Negative); RBC Urine >100 /hpf (0-2); Specific Grav Ur 1.018 (1.001-1.035); Squamous Epithelial Cell Urine Occasional /hpf (Few); WBC Urine >100 /hpf
[2022-09-10 00:45] LABS: Add Urine Microscopic? YES
--- NOTE | 2022-09-10 00:49 | ED.FEMALEGU ---
HPI - Female Genitourinary General Chief complaint: Urogenital-Female Stated complaint: dysuria and abdominal pain x 1 week Time Seen by Provider: 09/10/22 00:01 History of Present Illness HPI Narrative: Patient is a 22-year-old female here for evaluation of dysuria, right lower quadrant and right flank pain x1 week. Patient states that she has had urinary frequency in addition to the above symptoms. She has not tried any medicine for her symptoms. No fevers, chills, nausea, vomiting, diarrhea or constipation. She still has her appendix. Related Data Home Medications Medication Instructions Recorded Confirmed vit no.95-ferrous 1 tablet PO DAILY 10/24/19 10/24/19 fumarate 28 mg-folic acid 800 mcg tablet () Allergies Allergy/AdvReac Type Severity Reaction Status Date / Time No Known Allergies Allergy Verified 09/09/22 20:49 Review of Systems Review of Systems: Gen.: Denies fevers or chills Eyes: Denies eye pain or visual change ENT: Denies congestion Respiratory: Denies shortness of breath or cough CV: Denies chest pain or palpitations GI: Reports abdominal pain reports dysuria Musculoskeletal: Denies back pain or muscle pain Neuro: Denies numbness, tingling, weakness or focal weakness Skin: Denies rash Except as documented, all other systems reviewed and negative PMFSH Past Medical History Medical History Anxiety Surgical History Surgical History History of section Hx of tonsillectomy Family History Family History Other Unknown family medical history Social History Social History Smoking status: Never smoker Substance use: never Gender identity (if verbalized by the patient): Female Spiritual care concerns: No Exam Narrative: APPEARANCE: Well appearing, no pain in distress, well-nourished. Head: Normocephalic and atraumatic. EYES: PERRLA/EOMI, conjunctivae clear NOSE: No nasal drainage EARS: External ear normal in appearance THROAT: Oropharynx is clear. Mucous membranes are moist. NECK: Supple. No adenopathy, no masses. RESPIRATORY: Airway patent, respirations nonlabored. Clear to auscultation bilaterally, no rales, rhonchi, wheezing. CARDIOVASCULAR: Regular rate and rhythm without murmurs, rubs, or gallops. ABDOMINAL: Right lower quadrant abdominal tenderness. Right flank tenderness. Normoactive bowel sounds. Soft, nondistended. No rebound tenderness or guarding. MUSCULOSKELETAL: Extremities are warm and well-perfused. Moves all extremities well. No edema. NEURO: Normal speech. No focal neurologic deficits. SKIN: Skin is warm and dry. No rashes. PSYCHIATRIC: Normal affect/mood.. Course Course Emergency Course: CT abd pelvis resulted with evidence of cystitis and possible early ascending infection, will tx with cipro and patient received CTX in ED Vital Signs Vital signs: Vital Signs Temperature 98.7 F 09/09/22 21:07 Pulse Rate 93 09/09/22 21:07 Respiratory Rate 18 09/09/22 21:07 Blood Pressure 119/69 09/09/22 21:07 Pulse Oximetry 100 09/09/22 21:07 Oxygen Delivery Room Air 09/09/22 21:07 Temperature 98.7 F 09/09/22 21:07 Pulse Rate 68 09/10/22 04:13 Respiratory Rate 14 09/10/22 04:13 Blood Pressure 112/68 09/10/22 04:13 Pulse Oximetry 98 09/10/22 04:13 Oxygen Delivery Room Air 09/09/22 21:07 MDM - Female Genitourinary MDM Narrative Medical decision making narrative: 22-year-old female here for evaluation of urinary symptoms in addition to right lower quadrant and right flank pain x1 week. Patient is nontoxic in appearance and has normal vital signs. She does have some tenderness to palpation in the right CVA and the right lower quadrant. Uri
[2022-09-10 00:50] LABS: Basophils Percent Auto 0.3 % (0.2-1.2); Eosinophils Absolute Auto 0.2 K/mm3 (0-0.3); Eosinophils Percent Auto 1.4 % (0-4.4); Hematocrit 40.2 % (37.0-47.0); Hemoglobin 13.3 g/dL (12.0-15.0); Immature Granulocyte Absolute 0.04 K/mm3 (0.00-0.031); Immature Granulocyte Percent A 0.3 % (0-0.5); Lymphocytes Absolute Auto 1.62 K/mm3 (0.9-3.2); Lymphocytes Percent Auto 13.5 % (18.3-44.2); Mean Corpuscular HGB Conc 33.1 g/dl (32-36); Mean Corpuscular Hemoglobin 30.3 pg (26-34); Mean Corpuscular Volume 91.6 fl (80-100); Monocytes Absolute Auto 0.7 K/mm3 (0.1-0.6); Monocytes Percent Auto 6.2 % (2.6-8.5); Neutrophils Absolute Auto 9.4 K/mm3 (1.3-6.7); Neutrophils Percent Auto 78.3 % (45.5-73.1); Platelet Count Result 212 k/mm3 (150-375); Red Blood Count 4.39 M/mm3 (4.2-5.4); Red Cell Distribution Width 12.8 % (11.5-14.5)
[2022-09-10 01:01] LABS: Alanine Aminotransferase 20 U/L (6-35); Albumin Level 4.4 g/dL (3.5-5.1); Alkaline Phosphatase 69 U/L (38-126); Anion Gap 5 mmol/L (8-16); Aspartate Amino Transferase 25 U/L (14-36); Bilirubin,Total 0.5 mg/dL (0.2-1.3); Blood Urea Nitrogen 11 mg/dL (7-17); Calcium 8.4 mg/dL (8.4-10.2); Carbon Dioxide 33 mmol/L (22-30); Chloride 100 mmol/L (98-107); Estimated CRCL calculation 116 ml/min; Estimated Glomerular Filt Rate > 60; Glucose 92 mg/dL (65-110); Potassium 3.7 mmol/L (3.4-5.0); Sodium 138 mmol/L (137-145)
[2022-09-10] MEDS: ACETAMINOPHEN 325 MG TABLET 650 MG PO (01:02)
[2022-09-10 01:49] LABS: Pregnancy On Board Control Positive; Urine Pregnancy Test Negative
[2022-09-10 01:50] VITALS: BP 114/62; PULSE 84; RESP 16; O2SAT 99
[2022-09-10 04:13] VITALS: BP 112/68; PULSE 68; RESP 14; O2SAT 98
== END 2022-09-10 04:14 | disposition home or self-care (01) ==
PROVIDERS: Emergency Medicine; Emergency Provider Physician Assistant
DX: N39.0 Urinary tract infection, site not specified (principal)
CPT/HCPCS: 36415; 74177; 80053; 81001; 81025; 85025; 87077; 87086; 87088; 87186; 96360; 99284; A9270; J0696; Q9967

== ENCOUNTER 2022-10-26 16:37 | Outpatient (CLI) | payer OTHER, SELFPAY ==
[2022-10-26 17:19] LABS: Basophils Percent Auto 0.2 % (0.2-1.2); Eosinophils Absolute Auto 0.1 K/mm3 (0-0.3); Eosinophils Percent Auto 0.9 % (0-4.4); Hemoglobin 12.9 g/dL (12.0-15.0); Immature Granulocyte Absolute 0.04 K/mm3 (0.00-0.031); Immature Granulocyte Percent A 0.4 % (0-0.5); Lymphocytes Absolute Auto 1.05 K/mm3 (0.9-3.2); Lymphocytes Percent Auto 9.9 % (18.3-44.2); Mean Corpuscular HGB Conc 33.1 g/dl (32-36); Mean Corpuscular Hemoglobin 30.6 pg (26-34); Mean Corpuscular Volume 92.6 fl (80-100); Mean Platelet Volume 10.4 fl (7.4-10.4); Monocytes Absolute Auto 0.7 K/mm3 (0.1-0.6); Monocytes Percent Auto 6.2 % (2.6-8.5); Neutrophils Absolute Auto 8.7 K/mm3 (1.3-6.7); Neutrophils Percent Auto 82.4 % (45.5-73.1); Platelet Count Result 234 k/mm3 (150-375); Red Blood Count 4.21 M/mm3 (4.2-5.4); Red Cell Distribution Width 13.2 % (11.5-14.5); White Blood Count 10.6 K/mm3 (4.5-10.0)
[2022-10-26 18:12] LABS: HIV 1/2 Ab P24 Ag Result Negative (Negative)
[2022-10-26 18:55] LABS: Hepatitis B Surface Antigen Negative (Negative); Rubella IgG Antibody 20.3 IU/ML
[2022-10-27 09:23] LABS: Rapid Plasma Reagin Non-Reactive (NonReactive)
[2022-10-30 09:13] LABS: CMV IgG Antibody <0.60 U/mL (<0.60)
[2022-10-30 16:06] LABS: Varicella IgG Antibody <135.00 Index (>=165.00)
== END 2022-10-26 16:38 | disposition home or self-care (01) ==
PROVIDERS: Visit Provider Obstetrics & Gynecology
DX: N91.2 Amenorrhea, unspecified (principal)
CPT/HCPCS: 36415; 84702; 85025; 86592; 86644; 86703; 86747; 86762; 86787; 86850; 86900; 86901; 87077; 87086; 87186; 87340; G0432

== ENCOUNTER 2023-01-20 13:48 | Outpatient (CLI) | payer OTHER, SELFPAY ==
--- NOTE | ~2023-01-20 | US_ITS ---
EXAMINATION: US OB /maternal detail DATE: 01/20/2023 16:04 INDICATION: survey TECHNIQUE: Multiple obstetric sonographic images performed. FINDINGS: No prior studies for comparison. There is a single living fetus in vertex presentation. The placenta is anterior without placenta pre via. There is a hypoechoic area of the placenta along the amniotic margin which may represent a place ntal abreu or a preplacental abruption measuring 3.8 x 1.1 cm. Placental margin to the cervix is great er than 6 cm. The Amniotic fluid volume is subjectively normal. cardiac activity and movement is noted with a heart rate of 150 beats per minute. The following anatomy was identified as normal: 4 chamber heart 3 vessel cord cord insertion kidneys urinary bladder stomach spine diaphragm cisterna magna cerebellum There is a cystic structure in the choroid plexus measuring 8 mm which may represent focally prominen t ventricle or choroid plexus cyst. Recommend attention to this on subsequent examination. The following biometric data were obtained: BPD: 47mm corresponds to gestational age 20 weeks 1 days. Head circumference: 172 mm corresponds to gestational age 19 weeks 6 days. Abdominal circumference: 156 mm corresponds to gestational age 20 weeks 6 days. Femur length: 33 mm corresponds to gestational age 20 weeks 1 days. Head circumference to abdominal circumference ratio: 1.1 (normal range for expected gestational age i s 1.07-1.25). Estimated weight: 353 grams +/- 53 grams using Hadlock method 44.8%. IMPRESSION: 1: Single living intrauterine with an estimated gestational age of 20weeks 2days by current ultrasound measurements, with an EDC of 06/07/2023 in vertex presentation. 2. Cystic structure in the region of the choroid plexus measuring 8 mm which may represent focally p rominent ventral or choroid plexus cyst. Recommend attention to this on subsequent examination. Remai nder of the survey is unremarkable. 3: Hypoechoic structure along the amniotic margin of the placenta placental abruption measuring 3.8 x 1.1 cm. Recommend attention to this on subsequent examination.] [ ] Reviewed, dictated and finalized at location L. IMPRESSION: 1: Single living intrauterine with an estimated gestational age of 20 weeks 2days by current ultrasound measurements, with an EDC of 06/07/2023 in meredith fredis presentation. 2. Cystic structure in the region of the choroid plexus measuring 8 mm which m ay represent focally prominent ventral or choroid plexus cyst. Recommend attent ion to this on subsequent examination. Remainder of the survey is unremar kable. 3: Hypoechoic structure along the amniotic margin of the placenta placental ab ruption measuring 3.8 x 1.1 cm. Recommend attention to this on subsequent exami nation.] [ ]
== END 2023-01-20 13:49 | disposition home or self-care (01) ==
LOC: ANHIMG 13:53
PROVIDERS: PCP Obstetrics & Gynecology; Visit Provider Obstetrics & Gynecology
DX: Z34.90 Encounter for supervision of normal pregnancy, unspecified, unspecified trimester (principal); Z3A.00 Weeks of gestation of pregnancy not specified
CPT/HCPCS: 76805

== ENCOUNTER 2023-02-23 14:41 | Observation (INO) | payer OTHER, SELFPAY ==
[2023-02-23] VITALS (8 sets, daily range): BP systolic 101–134; BP diastolic 48–94; PULSE 88–107; RESP 16; TEMP 36.3–36.4; O2SAT 100
--- NOTE | 2023-02-23 14:39 | PC.NURSE ---
contacted ob special agent in charge. pt to go to ob for monitoring. pt crying due to abd pain. taken to ob via wheelchair.
[2023-02-23 15:48] LABS: Basophils Absolute Auto 0.1 K/mm3 (0.0-0.1); Basophils Percent Auto 0.4 % (0.2-1.2); Eosinophils Percent Auto 0.3 % (0-4.4); Hematocrit 36.1 % (37.0-47.0); Hemoglobin 12.2 g/dL (12.0-15.0); Immature Granulocyte Absolute 0.09 K/mm3 (0.00-0.031); Immature Granulocyte Percent A 0.8 % (0-0.5); Lymphocytes Percent Auto 13.1 % (18.3-44.2); Mean Corpuscular HGB Conc 33.8 g/dl (32-36); Mean Corpuscular Hemoglobin 31.7 pg (26-34); Mean Corpuscular Volume 93.8 fl (80-100); Mean Platelet Volume 10.2 fl (7.4-10.4); Monocytes Absolute Auto 0.8 K/mm3 (0.1-0.6); Monocytes Percent Auto 6.7 % (2.6-8.5); Neutrophils Percent Auto 78.7 % (45.5-73.1); Platelet Count Result 241 k/mm3 (150-375); Red Blood Count 3.85 M/mm3 (4.2-5.4); Red Cell Distribution Width 11.9 % (11.5-14.5); White Blood Count 11.4 K/mm3 (4.5-10.0)
[2023-02-23] MEDS: DEXTROSE 5%/0.9% SOD CHL 1,000 ML 999 ML IV CONT (15:52)
[2023-02-23] MEDS: ONDANSETRON INJ 4 MG/2 ML VIAL IV PUSH (15:53)
[2023-02-23 15:58] LABS: Alanine Aminotransferase 13 U/L (6-35); Albumin Level 4.1 g/dL (3.5-5.1); Alkaline Phosphatase 88 U/L (38-126); Anion Gap 13 mmol/L (8-16); Aspartate Amino Transferase 21 U/L (14-36); Bilirubin,Total 0.7 mg/dL (0.2-1.3); Blood Urea Nitrogen 9 mg/dL (7-17); Calcium 8.9 mg/dL (8.4-10.2); Carbon Dioxide 19 mmol/L (22-30); Chloride 100 mmol/L (98-107); Estimated CRCL calculation 130 ml/min; Estimated Glomerular Filt Rate > 60; Glucose 83 mg/dL (65-110); Potassium 3.6 mmol/L (3.4-5.0); Sodium 132 mmol/L (137-145)
[2023-02-23 17:06] LABS: Appearance Urine Clear (Clear); Bacteria Urine None Seen /hpf; Bilirubin Urine Negative (Negative); Blood Urine 1+ (Negative); Color Urine Yellow (Yellow); Glucose Urine UA 1+ mg/dL (Negative); Ketones Urine 4+ mg/dL (Negative); Leukocyte Esterase Ur 2+ LEU/UL (Negative); Nitrate Urine Negative (Negative); Non Pathogenic Casts 0-2; Protein Urine Negative (Negative); Squamous Epithelial Cell Urine Occasional /hpf (Few); WBC Urine 21-50 /hpf; pH Urine 6.5 (5.0-9.0)
[2023-02-23 17:11] LABS: Add Urine Microscopic? YES
[2023-02-23] MEDS: DEXTROSE 5%/0.9% SOD CHL 1,000 ML 150 ML IV CONT (17:13)
--- NOTE | 2023-02-23 18:33 | OBADM ---
This patient, Jayne Bay, admitted to the OB room OB Post 116 for observation. Patient/family oriented to hospital policies and general routines including ID bracelet, bed and alarms, visiting hours, pain management, procedures, bathroom and other care routines, personal items, smoking policy, room service/diet, and visiting hours. Patient/Family are encouraged to report perceived risks to care and to ask questions if they do not understand what they are told or what they should do.
--- NOTE | 2023-02-23 18:39 | PC.NURSE ---
9331--Reported labs to Dr Lynch. Plan of care discussed. Orders received.
--- NOTE | 2023-02-23 18:40 | PC.NURSE ---
1721--Dr. Jasmine called in for pt status. Additional labs reported/ DC orders given.
--- NOTE | 2023-02-24 09:19 | PM.OBTRLD ---
OB - Triage/Final Diagnosis Visit Information Comments/Additional reasons for admission: I have assessed the risk for this patient, Jayne Stone [place], and determined that she would benefit from observation care. Evaluation Laboratory results: Laboratory Tests 02/23/23 02/23/23 15:40 15:44 WBC 11.4 H RBC 3.85 L Hgb 12.2 Hct 36.1 L MCV 93.8 MCH 31.7 MCHC 33.8 RDW 11.9 Plt Count 241 MPV 10.2 Immature Gran % (Auto) 0.8 H Neut % (Auto) 78.7 H Lymph % (Auto) 13.1 L [place] % (Auto) 6.7 Eos % (Auto) 0.3 Baso % (Auto) 0.4 Lymph # (Auto) 1.50 [place] # (Auto) 0.8 H Eos # (Auto) 0.0 Baso # (Auto) 0.1 Abs Immat Gran (auto) 0.09 H Absolute Neuts (auto) 9.0 H Absolute Nucleated RBC 0.0 Nucleated RBC % 0.0 Sodium 132 L Potassium 3.6 Chloride 100 Carbon Dioxide 19 L Anion Gap 13 BUN 9 Creatinine 0.50 L Estim Creat Clear Calc 130 Estimated GFR > 60 Glucose 83 Calcium 8.9 Total Bilirubin 0.7 AST 21 ALT 13 Alkaline Phosphatase 88 Total Protein 8.0 Albumin 4.1 Urine Color Yellow Urine Appearance Clear Urine pH 6.5 Ur Specific [place] 1.020 Urine Protein Negative Urine Glucose (UA) 1+ H Urine Ketones 4+ H Ur Blood (Man) 1+ H Urine Nitrate Negative Urine Bilirubin Negative Urine Urobilinogen 1.0 Leukocyte Esterase Rfl 2+ H Urine RBC 11-20 H Urine WBC 21-50 H Ur Squamous Epith Cells Occasional Urine Bacteria None seen Urine Casts 0-2 Vital signs: Vital Signs - 24 hr 02/23/23 14:31 02/23/23 14:53 02/23/23 15:01 Temperature 97.3 F L Pulse Rate 88 100 104 H Respiratory Rate 16 Blood Pressure 122/68 134/94 H 101/48 L Pulse Oximetry 100 Oxygen Delivery Room Air 02/23/23 15:15 02/23/23 15:57 02/23/23 16:00 Temperature Pulse Rate 107 H 99 94 Respiratory Rate Blood Pressure 112/51 L 112/72 115/73 Pulse Oximetry Oxygen Delivery 02/23/23 16:16 11/28/23 15:41 Temperature 97.6 F Pulse Rate 90 Respiratory Rate Blood Pressure 114/70 Pulse Oximetry Oxygen Delivery Final Diagnosis (1) Abdominal pain: Code(s): R10.9 - Unspecified abdominal pain Status: Acute
== END 2023-02-23 18:35 | disposition home or self-care (01) ==
PROVIDERS: Admitting Provider Obstetrics & Gynecology; Visit Provider Obstetrics & Gynecology
DX: O26.892 Other specified pregnancy related conditions, second trimester (principal); R10.9 Unspecified abdominal pain; Z3A.25 25 weeks gestation of pregnancy
CPT/HCPCS: 36415; 80053; 81001; 85025; 87086; 96374; G0378; G0379; J2405; J7042

== ENCOUNTER 2023-03-12 13:27 | Outpatient (CLI) | payer OTHER, SELFPAY ==
[2023-03-12 15:13] LABS: Basophils Percent Auto 0.3 % (0.2-1.2); Eosinophils Absolute Auto 0.1 K/mm3 (0-0.3); Eosinophils Percent Auto 0.7 % (0-4.4); Hemoglobin 11.9 g/dL (12.0-15.0); Immature Granulocyte Absolute 0.09 K/mm3 (0.00-0.031); Lymphocytes Absolute Auto 1.15 K/mm3 (0.9-3.2); Lymphocytes Percent Auto 13.1 % (18.3-44.2); Mean Corpuscular HGB Conc 33.1 g/dl (32-36); Mean Corpuscular Hemoglobin 31.3 pg (26-34); Mean Corpuscular Volume 94.7 fl (80-100); Mean Platelet Volume 10.4 fl (7.4-10.4); Monocytes Absolute Auto 0.5 K/mm3 (0.1-0.6); Neutrophils Percent Auto 78.9 % (45.5-73.1); Platelet Count Result 200 k/mm3 (150-375); Red Cell Distribution Width 12.2 % (11.5-14.5); White Blood Count 8.8 K/mm3 (4.5-10.0)
[2023-03-12 16:03] LABS: HIV 1/2 Ab P24 Ag Result Negative (Negative)
[2023-03-12 19:32] LABS: Glucose 1 Hour PP 50gm Dose 109 mg/dL
== END 2023-03-12 13:28 | disposition home or self-care (01) ==
LOC: ANHLAB 13:29
PROVIDERS: Visit Provider Obstetrics & Gynecology
DX: Z34.90 Encounter for supervision of normal pregnancy, unspecified, unspecified trimester (principal); Z3A.00 Weeks of gestation of pregnancy not specified
CPT/HCPCS: 36415; 82947; 85025; 86703; G0432

== ENCOUNTER 2023-04-17 23:31 | Observation (INO) | payer OTHER, SELFPAY ==
[2023-04-17 23:54] VITALS: PULSE 90; O2SAT 100
[2023-04-17 23:55] VITALS: PULSE 103; PULSE 106; O2SAT 100; O2SAT 95
[2023-04-17 23:56] VITALS: BP 115/65; PULSE 96
[2023-04-17 23:58] VITALS: PULSE 187; O2SAT 98
[2023-04-17 23:59] VITALS: PULSE 104; O2SAT 99
[2023-04-18] VITALS (26 sets, daily range): BP systolic 114–141; BP diastolic 62–80; PULSE 94–129; O2SAT 95–100; BMI 24.9
[2023-04-18] MEDS: TERBUTALINE SULFATE 1 MG/ML VIAL 0.25 MG SUB-Q ×2 (00:12→01:14)
--- NOTE | 2023-04-18 00:25 | PC.NURSE ---
2331: pt presents to L&D from ED via wheelchair with complaints of contractions that began at 1700. pt denies any vaginal bleeding or leaking of fluid and has positive movement. pt states on 04/13/23 she was diagnosed with a yeast infection and has taken her medication for that. 2355: SVE done, cervix very posterior and a fingertip in dilation. 0000: Dr. Novak notified of pt status, orders obtained.
[2023-04-18] MEDS: ACETAMINOPHEN 500 MG TABLET 1000 MG PO (00:48)
[2023-04-18 00:53] LABS: Appearance Urine Cloudy (Clear); Bacteria Urine None Seen /hpf; Bilirubin Urine Negative (Negative); Blood Urine 2+ (Negative); Color Urine Yellow (Yellow); Glucose Urine UA Negative (Negative); Ketones Urine 2+ mg/dL (Negative); Leukocyte Esterase Ur Trace LEU/UL (Negative); Mucus Urine Present /lpf; Need Manual Microscopic Reviewed; Nitrate Urine Negative (Negative); Non Pathogenic Casts 0-2; Protein Urine Negative (Negative); RBC Urine 21-50 /hpf (0-2); Specific Grav Ur 1.018 (1.001-1.035); Squamous Epithelial Cell Urine None seen /hpf (Few); Urobilinogen Urine 0.2 mg/dL (<2.0)
[2023-04-18 00:55] LABS: Add Urine Microscopic? YES
--- NOTE | 2023-04-18 01:00 | PC.NURSE ---
0100: Dr. Novak notified of pt status and lab results. orders obtained. instructed to call back an hour after next dose of terbutaline.
[2023-04-18] MEDS: NITROFURANTOIN MONOHYD MACROCR 100 MG CAP PO (01:14)
--- NOTE | 2023-04-18 02:18 | PC.NURSE ---
0214: Dr. Novak notified of pt status, instructed to send pt home.
--- NOTE | 2023-05-07 14:44 | P.PNOB_ITS ---
OB - Triage/Final Diagnosis Visit Information Comments/Additional reasons for admission: I have assessed the risk for this patient, Jayne Stone [place], and determined that she would benefit from observation care. Evaluation Laboratory results: Laboratory Tests 04/18/23 00:31 Urine Color Yellow Urine Appearance Cloudy H Urine pH 7.0 Ur Specific [place] 1.018 Urine Protein Negative Urine Glucose (UA) Negative Urine Ketones 2+ H Ur Blood (Man) 2+ H Urine Nitrate Negative Urine Bilirubin Negative Urine Urobilinogen 0.2 Add Ur Microanalysis Reviewed Leukocyte Esterase Rfl Trace H Urine RBC 21-50 H Urine WBC 11-20 H Ur Squamous Epith Cells None seen Urine Bacteria None seen Urine Casts 0-2 Urine Mucus Present Final Diagnosis (1) contractions: Code(s): O47.00 - False labor before 37 completed weeks of gestation, unspecified trimester Status: Acute
== END 2023-04-18 02:51 | disposition home or self-care (01) ==
PROVIDERS: Admitting Provider Obstetrics & Gynecology; PCP Obstetrics & Gynecology; Visit Provider Obstetrics & Gynecology
DX: O47.03 False labor before 37 completed weeks of gestation, third trimester (principal); Z3A.33 33 weeks gestation of pregnancy
CPT/HCPCS: 81001; 87086; 87088; 96372; A9270; G0378; G0379; J3105

== ENCOUNTER 2023-05-29 10:39 | Outpatient (CLI) | payer OTHER, SELFPAY ==
[2023-05-29 11:20] LABS: Hematocrit 33.5 % (37.0-47.0); Hemoglobin 10.6 g/dL (12.0-15.0); Mean Corpuscular HGB Conc 31.6 g/dl (32-36); Mean Corpuscular Volume 91.8 fl (80-100); Mean Platelet Volume 11.4 fl (7.4-10.4); Platelet Count Result 215 k/mm3 (150-375); Red Blood Count 3.65 M/mm3 (4.2-5.4); Red Cell Distribution Width 12.7 % (11.5-14.5); White Blood Count 9.8 K/mm3 (4.5-10.0)
[2023-05-31 14:04] LABS: Rapid Plasma Reagin Non-Reactive (NonReactive)
== END 2023-05-29 10:40 | disposition home or self-care (01) ==
PROVIDERS: PCP Obstetrics & Gynecology; Visit Provider Obstetrics & Gynecology
DX: Z01.818 Encounter for other preprocedural examination (principal)
CPT/HCPCS: 36415; 85027; 86592; 86850; 86900; 86901

== ENCOUNTER 2023-05-31 09:47 | Inpatient (IN) | payer OTHER, SELFPAY ==
[2023-05-31] VITALS (63 sets, daily range): BP systolic 101–129; BP diastolic 56–82; PULSE 60–97; RESP 12–20; TEMP 36.1–36.6; O2SAT 83–100; BMI 27.5
[2023-05-31] MEDS: ACETAMINOPHEN 500 MG TABLET 1000 MG PO (10:13)
--- NOTE | 2023-05-31 10:15 | LDADM ---
This patient, Jayne Bay, was admitted to Labor/Delivery/Recovery 119 on 05/31/23 at 09:47. Plans for labor, pain management and were discussed with patient. Patient/family oriented to hospital policies and general routines including ID bracelet, bed and alarms, visiting hours, pain management, procedures, bathroom and other care routines, personal items, smoking policy, room service/diet and guest tray routines, security routines, and visiting hours. Patient/Family are encouraged to report perceived risks to care and to ask questions if they do not understand what they are told or what they should do. See OBIX for further documentation.
[2023-05-31] MEDS: LACTATED RINGERS 1,000 ML 125 ML IV CONT ×2 (10:25→11:58)
--- NOTE | 2023-05-31 10:30 | PM.IMHP ---
H&P: HPI History of Present Illness Date/Time: 05/31/23 10:30 Chief Complaint: repeat Narrative: Jayne is a 23yo @ 39.1wks who presents for repeat section. She reports good movement. Irregular contractions. No VB or LOF. Her is complicated by: - Previous c/s x1-- for repeat - choroid plexus cyst/placental abreu-- not noted by MFM - GBS positive Review of Systems Constitutional: Constitutional: Denies chills, Denies fever(s) and Denies headache(s) Eyes: Eyes: Denies change in vision ENT: Denies headache(s) Cardiovascular: Cardiovascular: Denies chest pain and Denies dyspnea Respiratory: Respiratory: Denies dyspnea Genitourinary: Genitourinary: Denies abnormal vaginal bleeding and Denies vaginal discharge Neurologic: Denies headache(s) Psychiatric: Psychiatric: Denies anxiety and Denies depression [facility] Past Medical History Medical History Anxiety Surgical History Surgical History History of section Hx of tonsillectomy Family History Family History Grandparent Hypertension maternal grandfather Diabetes mellitus maternal grandmother Other Unknown family medical history Social History Social History Smoking status: Former smoker Tobacco type: e-cigarettes/vaping Second hand tobacco smoke exposure: No Alcohol intake: never Substance use: never Substance use type: does not use Do You Feel Safe in your Home?: Yes Lack of Transportation: No Lack of Food: Never True Current Housing: I Have Housing Concerned About Future Housing: No Difficulty Paying Gas/Electric Bills: No Difficulty Paying for Meds: No Currently Unemployed: No Education: High School Diploma/GED Difficulty w/ Childcare or Family Care: No Living arrangements: other Additional living arrangements comments: live with boyfriend Occupation/Education: unemployed Additional occupation/education comments: laid off Gender identity (if verbalized by the patient): Female Sexual Orientation (if Verbalized by the Patient): Straight or Heterosexual Spiritual care concerns: No Meds Home Medications and Allergies Home Medications Medication Instructions Recorded Confirmed Type vit no.95-ferrous 1 tablet PO DAILY 10/24/19 05/25/23 History fumarate 28 mg-folic acid 800 mcg tablet () aspirin 81 mg tablet,delayed 162 mg PO DAILY #120 tabs 01/04/23 05/25/23 Rx release (Adult Aspirin Regimen) Allergies Allergy/AdvReac Type Severity Reaction Status Date / Time No Known Allergies Allergy Verified 05/25/23 15:29 Exam Const: General: cooperative, healthy appearing, comfortable and no acute distress Nutritional Appearance: obese Orientation/consciousness: patient oriented x3 Resp: Effort & Inspection: normal respiratory effort Cardio: Rate: regular rate GI: GI Palp: No abdominal tenderness : Other: FHT's: 150's/ mod kenroy/ + accels/ no decels - cat 1 TOCO: irregular ctxs Membranes: intact Presentation: cephalic Skin: General skin exam: normal color Neuro: General: patient oriented x3 Extrem: General: normal to inspection Psych: Appearance: grossly normal Affect: normal affect Attitude: cooperative Assessment and Plan Assessment and plan (1) History of section: Code(s): Z98.891 - History of uterine scar from previous surgery Status: Acute Plan - H/o previous section; for repeat - Risks and benefits discussed in detail - Ancef 2g IV once pre-op
--- NOTE | 2023-05-31 10:32 | WPDHPUPDATE1 ---
History and Physical Update Update Date/Time: 05/31/23 10:32 History and Physical has been reviewed, including an updated exam of the patient. There are NO changes in the patient's condition. Risks, benefits, and alternatives have been discussed and questions answered. Patient agrees to proceed with procedure.
--- NOTE | 2023-05-31 11:19 | WPDANESEPPF ---
Anes - Initial Pre Proc Eval Procedure: Operation Date: 05/31/23 12:00 Proposed Procedures p Repeat Section - Nataly Lynch MD Date/Time: 05/31/23 11:19 Surgeon: Nataly Lynch MD Pre Op Diagnosis: Previous Patient Data Age: 23 Gender: F Height: 1.65 m Weight: 75 kg Last Vital Signs Pulse 82 05/31/23 11:16 BP 117/71 05/31/23 11:16 O2 Del Method Room Air 05/31/23 10:14 Allergies Allergy/AdvReac Type Severity Reaction Status Date / Time No Known Allergies Allergy Verified 05/25/23 15:29 Home Medications Medication Instructions Recorded Confirmed Type vit no.95-ferrous 1 tablet PO DAILY 10/24/19 05/25/23 History fumarate 28 mg-folic acid 800 mcg tablet () aspirin 81 mg tablet,delayed 162 mg PO DAILY #120 tabs 01/04/23 05/25/23 Rx release (Adult Aspirin Regimen) Patient hx anesthesia problems: none Family hx anesthesia problems: none Results Review: All pre-operative results and documents have been reviewed as part of the pre-operative evaluation. [facility] Past Medical History Medical History Anxiety Surgical History Surgical History History of section Hx of tonsillectomy Family History Family History Grandparent Hypertension maternal grandfather Diabetes mellitus maternal grandmother Other Unknown family medical history Social History Social History Smoking status: Former smoker Tobacco type: e-cigarettes/vaping Second hand tobacco smoke exposure: No Alcohol intake: never Substance use: never Substance use type: does not use Do You Feel Safe in your Home?: Yes Lack of Transportation: No Lack of Food: Never True Current Housing: I Have Housing Concerned About Future Housing: No Difficulty Paying Gas/Electric Bills: No Difficulty Paying for Meds: No Currently Unemployed: No Education: High School Diploma/GED Difficulty w/ Childcare or Family Care: No Living arrangements: other Additional living arrangements comments: live with boyfriend Occupation/Education: unemployed Additional occupation/education comments: laid off Gender identity (if verbalized by the patient): Female Sexual Orientation (if Verbalized by the Patient): Straight or Heterosexual Spiritual care concerns: No Anes - Eval Final PreProcedure Day of Procedure 05/31/23 11:19 Patient weight: overweight Heart: regular rate and rhythm Lungs: clear to auscultation Airway: Mallampati scale class II Neurological: alert and oriented Last oral intake: >/= 8 hours ASA classification: II Emergent: no Anesthetic plan: proceed Anesthesia type and monitoring: regional spinal and standard monitoring Results Review: All pre-operative results and documents have been reviewed as part of the pre-operative evaluation. Informed Consent: The patient's anesthetic plan and its attendant risks and benefits were discussed with the patient/family/POA. Questions were solicited and answers provided to the satisfaction of the patient/family/POA.
[2023-05-31] MEDS: ONDANSETRON INJ 4 MG/2 ML VIAL IV PUSH ×3 (11:49→20:15)
[2023-05-31] MEDS: FAMOTIDINE 20 MG/2 ML VIAL IV PUSH (11:50)
[2023-05-31] MEDS: ceFAZolin 2 GM/D5W 50 ML 2 GM/50 ML BAG IVPB (12:08)
--- NOTE | 2023-05-31 13:24 | W.PM.OBCSD ---
OB - Delivery Note Procedure Delivery date: 05/31/23 Pre-op diagnosis: Positive Group B Strep (GBS) and Previous Delivery Post-op Diagnosis: Same Procedure Performed: Repeat Secondary branch: low cervical, transverse Surgeon: Nataly Lynch MD Anesthesia type: Spinal Description of Procedure/Findings: Thin lower uterine segment, minimal scar tissue (subcut only). Normal bilateral fallopian tubes and ovaries. Polyhydramnios; >1000cc clear fluid noted. Female , cephalic. Incision injected with Kenalog to help and try to prevent further keloid. Good hemostasis at end of case. Specimen: Yes Estimated Blood Loss: 345 Complications: No immediate complications Condition: Stable Disposition: Floor Baby Date of : 05/31/23 Time of : 12:39 Weeks of gestation at delivery: 39 (.1) Infant gender: Female Weight (pounds): 8 Weight (ounces): 15 presentation: vertex Placenta delivery description: Expressed Cord Vessel Description: 3 Vessels and Delayed Cord Clamping score one minute: 8 score five minutes: 8 Narrative: Jayne was counseled on all risks and benefits in detail for repeat . She was taken to the operating room where spinal was placed. She was then prepped and draped in the normal sterile fashion and a Colon catheter was placed. She received 2g Ancef and a time out was performed. A Pfannenstiel incision was made in the skin and carried down to the underlying fascia. The fascia was nicked on either side of the midline and the fascial incision was extended laterally and superiorly using curved Jimenez scissors. The fascia was then elevated using Ngozi clamps and the underlying rectus muscles were dissected off the fascia, superiorly and inferiorly. The rectus muscles were then in the midline and the peritoneum was entered sharply. Once adequate exposure was obtained, a Mobius self retractor was placed within the abdomen. A low transverse incision was made on the lower uterine segment and copious amounts of clear fluid was noted. The occiput was brought to the hysterotomy and the head was easily delivered. The shoulders and body then followed without complications. The had spontaneous cry and the mouth and nose were bulb suctioned. Cord clamping was delayed but doubly clamped and cut and the infant was handed off to the awaiting pediatric nurse. A segment of the cord was collected for cord gases. The remaining cord blood was collected for typing. With Pitocin infusing, the placenta delivered with gentle traction on the cord without complications. The uterus was then cleared out of all clots and debris using a clean, moist lap. The hysterotomy was then repaired in a running, interlocking fashion using 0 Vicryl. The hysterotomy was found to be hemostatic and good uterine tone was noted. The bilateral adnexa were examined and found to be normal. The pelvis was cleared of all clots and fluid. The Mobius retractor was removed from the abdomen. The peritoneum, muscle, and fascia were examined and made hemostatic with Bovie cautery. The fascia was then repaired using a 0 Vicryl suture in a running fashion. The subcutaneous tissue was then irrigated and made hemostatic with bovie cautery. The subcutaneous tissue was then reapproximated using 2-0 Vicryl. The skin was then closed using 4-0 Monocryl in a running subcuticular fashion. The incision was infiltrated with Kenalog 10mg subcutaneously to help prevent further keloid. A Mepilex dressing was placed over the incision. Sponge, lap, needle and instrument counts were correct at the end of the procedure x2. The patient tolerated the procedure well and was taken to recovery in a stable condition. [facility] Delivery Billing Delivery Delivery: Delivery Charge
[2023-05-31] MEDS: MORPHINE SULFATE (*CRX) 2 MG/ML INJ IV PUSH ×2 (13:31→13:54)
[2023-05-31] MEDS: MORPHINE SULFATE INJ (*CRX) 10 MG/ML AMP 2 MG IV PUSH ×2 (13:31→13:54)
[2023-05-31] MEDS: LIDOCAINE 5% PATCH 1 PATCH TRANSDERM (14:02)
[2023-05-31] MEDS: OXYTOCIN 30 UNITS/NS 500 ML 30 UNITS/500 ML BAG 125 UNITS IV CONT (14:52)
[2023-05-31] MEDS: KETOROLAC 15 MG/ML VIAL (*BKC) IV PUSH ×2 (15:15→21:40)
--- NOTE | 2023-05-31 16:40 | PC.NURSE ---
Patient transferred to post room #281 via stretcher. Support person present. Oriented to unit, room, information board, rooming in, admission packet and security measures. Patient verbalizes understanding.
[2023-05-31] MEDS: DEXTROSE 5%/0.45% SOD CHL 1,000 ML 125 ML IV CONT (19:30)
[2023-05-31] MEDS: ACETAMINOPHEN 325 MG TABLET 650 MG PO (21:40)
[2023-06-01 01:07] VITALS: BP 113/74; PULSE 77; RESP 18; TEMP 37.3; O2SAT 97
[2023-06-01] MEDS: ACETAMINOPHEN 325 MG TABLET 650 MG PO ×2 (03:45→10:53)
[2023-06-01] MEDS: KETOROLAC 15 MG/ML VIAL (*BKC) IV PUSH ×2 (03:45→10:52)
[2023-06-01] MEDS: diphenhydrAMINE HCl INJ 50 MG/ML VIAL 25 MG IV PUSH (04:30)
[2023-06-01 04:34] VITALS: BP 111/69; PULSE 70; RESP 18; TEMP 36.6; O2SAT 98
[2023-06-01 04:56] LABS: Basophils Absolute Auto 0.1 K/mm3 (0.0-0.1); Basophils Percent Auto 0.4 % (0.2-1.2); Eosinophils Percent Auto 0.3 % (0-4.4); Hematocrit 28.4 % (37.0-47.0); Hemoglobin 9.1 g/dL (12.0-15.0); Immature Granulocyte Absolute 0.12 K/mm3 (0.00-0.031); Immature Granulocyte Percent A 0.9 % (0-0.5); Lymphocytes Absolute Auto 0.79 K/mm3 (0.9-3.2); Lymphocytes Percent Auto 6.2 % (18.3-44.2); Mean Corpuscular Hemoglobin 29.4 pg (26-34); Mean Corpuscular Volume 91.6 fl (80-100); Mean Platelet Volume 11.5 fl (7.4-10.4); Monocytes Absolute Auto 0.7 K/mm3 (0.1-0.6); Monocytes Percent Auto 5.8 % (2.6-8.5); Neutrophils Absolute Auto 10.9 K/mm3 (1.3-6.7); Neutrophils Percent Auto 86.4 % (45.5-73.1); Platelet Count Result 168 k/mm3 (150-375); Red Cell Distribution Width 12.5 % (11.5-14.5); White Blood Count 12.7 K/mm3 (4.5-10.0)
[2023-06-01] MEDS: IRON SUCROSE COMPLEX 500 MG in SODIUM CHLORIDE 0.9% IV 250 ML 79 MG IVPB (05:57)
[2023-06-01] MEDS: SODIUM CHLORIDE 0.9% IV 100 ML 125 ML (05:58)
--- NOTE | 2023-06-01 07:13 | PM.OBPNVD ---
OB - PN: Subj Subjective Date/time seen: 06/01/23 07:13 Narrative: POD#1 Jayne reports doing ok today. 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 Her pain is controlled. She tolerated some crackers in the night; had two episodes of vomiting prior to that though. She refused garcia to be removed overnight, just removed at 0730. She has not ambulated or passed gas. She denies any issues with her incision. She would like to pump, since her daughter was transferred overnight. Getting IV iron infusion this morning. OB - PN: Obj Data Labs 06/01/23 04:17 Labs: Laboratory Results - last 24 hr 06/01/23 04:17 WBC 12.7 H RBC 3.10 L Hgb 9.1 L Hct 28.4 L MCV 91.6 MCH 29.4 MCHC 32.0 RDW 12.5 Plt Count 168 MPV 11.5 H Immature Gran % (Auto) 0.9 H Neut % (Auto) 86.4 H Lymph % (Auto) 6.2 L Stevens % (Auto) 5.8 Eos % (Auto) 0.3 Baso % (Auto) 0.4 Lymph # (Auto) 0.79 L Stevens # (Auto) 0.7 H Eos # (Auto) 0.0 Baso # (Auto) 0.1 Abs Immat Gran (auto) 0.12 H Absolute Neuts (auto) 10.9 H Absolute Nucleated RBC 0.0 Nucleated RBC % 0.0 OB - PN A/P Assessment and Plan (1) S/P repeat low transverse : Code(s): Z98.891 - History of uterine scar from previous surgery Status: Acute (2) Anemia: Code(s): D64.9 - Anemia, unspecified Status: Acute Plan day: 1 Plan: routine care Comments: - IV iron infusion running currently - Continue PO pain meds - regular diet - awaiting spontaneous void - hydration and ambulation encouraged - continue pumping q2-4h - Ok to have 4-6hr day pass to see baby if she would like this afternoon if meeting milestones Time Spent With Patient Time: Total time spent is greater than 50% in coordination of care (as documented) at patient's floor/unit and/or counseling patient: Review of Systems Constitutional: Constitutional: Denies chills, Denies fever(s) and Denies headache(s) Eyes: Eyes: Denies change in vision ENT: Denies dizziness and Denies headache(s) Cardiovascular: Cardiovascular: Denies chest pain, Denies palpitations and Denies dyspnea Respiratory: Respiratory: Denies cough and Denies dyspnea Gastrointestinal: Gastrointestinal: Denies nausea and Denies vomiting Genitourinary: Comments: normal bleeding Neurologic: Denies dizziness and Denies headache(s) Endocrine: Endocrine: Denies palpitations Exam Const: General: cooperative, healthy appearing, comfortable and no acute distress Orientation/consciousness: patient oriented x3 Resp: Effort & Inspection: normal respiratory effort Auscultation: clear to auscultation bilaterally Cardio: Rate: regular rate GI: Inspection: non-distended and incision (covered with clean dressing) GI Palp: Yes abdominal tenderness (appropriate) and Yes Soft to palpation Auscultation: normal bowel sounds : Other: fundus firm Skin: General skin exam: normal color Neuro: General: patient oriented x3 Extrem: General: normal to inspection Psych: Appearance: grossly normal Affect: normal affect Attitude: cooperative
--- NOTE | 2023-06-01 07:46 | WPDANLDPN2 ---
Anes-Prog Note L&D Date/Time: 06/01/23 07:46 Comfortable throughout: section Neuraxial method: spinal Epidural/Spinal procedure site: clean & non-tender Neuro status: Neuro function grossly intact. Cardiovascular status: normal (receiving blood) Respiratory status: normal Airway patency: baseline Mental status: baseline Post-Op hydration status: normal Vital Signs: Last Vital Signs Temp 36.6 C 06/01/23 04:34 Pulse 70 06/01/23 04:34 Resp 18 06/01/23 04:34 BP 111/69 06/01/23 04:34 Pulse Ox 98 06/01/23 04:34 O2 Del Method Room Air 05/31/23 15:30 Pain score (VAS): 2 I/O: Intake & Output 05/31/23 05/31/23 06/01/23 15:59 23:59 07:59 Intake Total 1600 2050 Output Total 587 637 9022 Balance 1080 -225 450 Post-procedural complaints: pruritis Patient feedback: Patient satisfied with anesthetic care.
--- NOTE | 2023-06-01 07:47 | WPDANLDNPN2 ---
Anes-Prog Note L&D-Neuraxial Date/Time: 06/01/23 07:47 Neuraxial medications: intrathecal PF morphine Opiod-related complaints: pruritis (took benadryl last night, did not help. Appears to be somewhat less severe this morning. ) Patient feedback: Patient satisfied with post-operative pain management.
[2023-06-01] MEDS: SIMETHICONE 80 MG TAB.CHEW PO ×3 (08:09→17:18)
[2023-06-01] MEDS: MULTIVIT/MIN/PREN/FOL AC/IRON TABLET 1 TAB PO (08:09)
[2023-06-01] MEDS: DOCUSATE SODIUM 100 MG CAPSULE PO ×2 (08:09→16:09)
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
--- NOTE | 2023-06-01 12:49 | PC.NURSE ---
[id number] Introductions were made. Mother shared her goal is to breastfeed and she pumped for 1 month with her first child, then stopped. Breast pump provided due to separation. It is unclear of what the reason is that led to the delay in initiating pumping. Instructions given on cleaning, care, usage, that there should be no pain, pumping schedule for milk production, collection, and storage of human milk. Patient was assessed for correct placement, flange size, to pump for comfort and nipple stretching/stimulation for adequate milk production every 3 hours (8 times in 24 hours) 1-2 times at night. Mother's nipples measure 13mm before pumping and she is instructed that the 21mm flanges provided are too big. Mother given individual guidance on proper flange sizing. Parents are encouraged to record the pumping schedule on the feeding sheet.?Reviewed with mother how to hand express colostrum as it will assist with milk removal since the breast flange available is too large. Mother chooses to review the video and handout, then will call for assistance with hand expression if needed. Education reiterated and Mother voiced understanding of the education shared along with mom/baby guide and the pump measurement, flange fit handout for additional resource information. was born yesterday at 1239 and transferred.
[2023-06-01 16:05] VITALS: BP 122/74; PULSE 78; RESP 16; TEMP 37.2; O2SAT 98
[2023-06-01] MEDS: HYDROcodone/acetaminophen (*CRX) 10-325 MG TABLET 1 TAB PO (16:09)
[2023-06-01] MEDS: IBUPROFEN 600 MG TABLET PO (17:18)
[2023-06-02 00:35] VITALS: BP 113/65; PULSE 91; RESP 18; TEMP 37.2; O2SAT 98
[2023-06-02] MEDS: ACETAMINOPHEN 325 MG TABLET 650 MG PO ×2 (00:35→08:13)
[2023-06-02] MEDS: IBUPROFEN 600 MG TABLET PO ×2 (00:35→08:15)
--- NOTE | 2023-06-02 06:32 | PM.OBDSVD ---
DS: Admitting Diagnosis Discharge Date 06/02/23 Admitting Diagnosis previous DS: Discharge Diagnosis Discharge Diagnosis (1) S/P repeat low transverse : Code(s): Z98.891 - History of uterine scar from previous surgery Status: Acute (2) Anemia: Code(s): D64.9 - Anemia, unspecified Status: Acute OB - DS: Summary OB Procedures : Ultrasound OB Procedures Intrapartum: low cervical, transverse OB Procedures: : Other (venofer 500mg IV once) Peripartum Data Infant Delivery Method: Section Procedures: Procedures Operation Date: 05/31/23 12:00 Actual Procedure Side Surgeon p Repeat Section Not Applicable Nataly Lynch MD complications: none 1: Gender: Female Disposition of : NICU Status at Discharge Functional status at discharge: independent ambulation Overall status at discharge: patient is back to baseline Time Spent with Patient Time attestation: Total time spent providing and/or coordinating discharge services: Exam Const: General: cooperative, healthy appearing, comfortable and no acute distress Orientation/consciousness: patient oriented x3 Resp: Effort & Inspection: normal respiratory effort Auscultation: clear to auscultation bilaterally Cardio: Rate: regular rate GI: Inspection: non-distended and incision (covered with clean dressing) GI Palp: No abdominal tenderness and Yes Soft to palpation Auscultation: normal bowel sounds : Other: fundus firm Skin: General skin exam: normal color Neuro: General: patient oriented x3 Extrem: General: normal to inspection Psych: Appearance: grossly normal Affect: normal affect Attitude: cooperative DS: Data Data Completed and Pending Pending studies at discharge: Pending at discharge 05/31/23 13:41 Surgical [PTH] Routine Discharge Plan Discharge Attending physician on discharge: Nataly Lynch Discharging Clinician: Natlay Lynch Anticipated Discharge Date/Time: 06/02/23 10:00 Patient Disposition: Home, Self-Care Activity: may shower and pelvic rest Diet: as tolerated and regular Discharge Instructions: Remove dressing on Wednesday, June 05 Patient Instructions: (DC) Stand Alone Forms: General Discharge Information Follow-up/Referrals: Nataly Lynch MD [Primary Care Provider] - 4 Weeks Discharge Medications: New acetaminophen 325 mg Tablet 650 mg PO Q6H Qty: 80 0RF hydrocodone-acetaminophen 5-325 mg Tablet 1 tablet PO Q3H PRN (Reason: Breakthrough Pain Rated 4-6) Qty: 24 0RF docusate sodium 100 mg Capsule 100 mg PO BID Qty: 120 0RF ibuprofen 600 mg Tablet 600 mg PO Q6H Qty: 60 0RF Continued PNV cmb#95-ferrous fumarate-FA [] 28 mg iron- 800 mcg Tablet 1 tablet PO DAILY Discontinued aspirin [Adult Aspirin Regimen] 81 mg tablet,delayed release (DR/EC) 162 mg PO DAILY Qty: 120 3RF Date of admission: 05/31/23 09:47 Primary Care Provider: Nataly Lynch Admitting Provider: Nataly Lynch Attending physician on admission: Nataly Lynch Condition: Stable
[2023-06-02 07:45] VITALS: BP 120/65; PULSE 88; RESP 16; TEMP 36.9; O2SAT 99
--- NOTE | 2023-06-02 08:00 | PC.NURSE ---
Pt introductions made and plan of care discussed per post op c section, pain management, breast pumping, daily care activities, baby at [facility] and pending discharge to home. PT fob both recipients of instructions and no barriers to learning identified at this time. PT received such instructions per one to one discussion, mom baby care guide and demonstrations. PT verbalized understanding of such care.
[2023-06-02] MEDS: LANOLIN (LANSINOH) 7.5 GM CREAM 1 APPLIC TOPICAL (08:13)
[2023-06-02] MEDS: DOCUSATE SODIUM 100 MG CAPSULE PO (08:15)
[2023-06-02] MEDS: POLYSACCHARIDE IRON COMPLEX 150 MG CAPSULE PO (08:15)
[2023-06-02] MEDS: MULTIVIT/MIN/PREN/FOL AC/IRON TABLET 1 TAB PO (08:15)
[2023-06-02] MEDS: SIMETHICONE 80 MG TAB.CHEW PO (08:15)
[2023-06-02] MEDS: LIDOCAINE 5% PATCH 1 PATCH TRANSDERM (08:18)
--- NOTE | 2023-06-02 09:10 | PC.NURSE ---
Care Coordination was called and informed of need to make sure [facility] is aware of DCFS open case of first child. Care Coordination assured me that DCFS is aware of second child at [facility] and the Care Coordination at [facility] was also notified of family history and situation.
--- NOTE | 2023-06-02 11:45 | PC.NURSE ---
PT and fob received discharge instructions per protocol and verbalized understanding of such care. PT had 10cc pumped breast milk and several other syringes of pumped breast milk on ice to take to [facility].
--- NOTE | 2023-06-02 12:04 | PC.NURSE ---
Pt discharged to home via wheelchair accompanied by fob and family and taken to waiting car. Follow up appts confirmed
[2023-06-03 10:56] VITALS: BP 126/79; PULSE 107; RESP 18; TEMP 36.6; O2SAT 100
== END 2023-06-02 12:04 | disposition home or self-care (01) | DRG 540 ==
LOC: ANHLDR 10:36 → ANHOB2 17:08
PROVIDERS: Admitting Provider Obstetrics & Gynecology; PCP Obstetrics & Gynecology; Visit Provider Obstetrics & Gynecology
PROC: 10D00Z1 Extraction of Products of Conception, Low, Open Approach (ICD-10-PCS; CPT 59514; principal; 2023-05-31 12:00)
DX: O34.219 Maternal care for unspecified type scar from previous cesarean delivery (principal); O99.824 Streptococcus B carrier state complicating childbirth; O99.02 Anemia complicating childbirth; D64.9 Anemia, unspecified; Z3A.39 39 weeks gestation of pregnancy; Z37.0 Single live birth; Z87.891 Personal history of nicotine dependence
CPT/HCPCS: 36415; 85025; 85027; 86592; 86850; 86900; 86901; 88307; A9270; J0690; J1200; J1756; J1885; J2270; J2274; J2405; J2590; J7050; J7120

== ENCOUNTER 2023-09-02 13:40 | Emergency (ER) | payer OTHER, SELFPAY ==
--- NOTE | ~2023-09-02 | XR_ITS ---
XR chest 1V portable Ordering provider: Lisa Arevalo MD History: 23 years Female with . intermittent SOB 1 week . Comparison: None. FINDINGS: MEDIASTINUM: The cardiac silhouette is not enlarged. LUNGS: No infiltrates, effusions or pneumothorax. OTHER: No free air under the diaphragm. IMPRESSION: No acute cardiopulmonary pathology. Reviewed, dictated and finalized at location A.
--- NOTE | 2023-09-02 13:44 | ED.FEMALEGU ---
HPI - Female Genitourinary General Chief complaint: Urogenital-Female Stated complaint: uti Time Seen by Provider: 09/02/23 13:43 Source: patient Mode of arrival: ambulatory Limitations: no limitations History of Present Illness HPI Narrative: 23 yo presents with concern for a UTI. SHe had one previously when she was and this feels similar. She reports dysuria, hematuria, urgency and frequenty. . LMP 5/20. No fever/chills. Nausea but no vomiting. Has been having low abdominal and back/flank pain, particularly on the right. She started taking Azo approximately 1 hour ago. Tried to get in to see her ObGyn Destini Lynch but was unable to. Pain worse when sitting up. Related Data Allergies Allergy/AdvReac Type Severity Reaction Status Date / Time No Known Allergies Allergy Verified 09/02/23 14:16 REPLACED BY [facility] Past Medical History Medical History Anxiety History of UTI Surgical History Surgical History History of section Hx of tonsillectomy Family History Family History Grandparent Hypertension maternal grandfather Diabetes mellitus maternal grandmother Other Unknown family medical history Social History Social History Smoking status: Former smoker Tobacco type: e-cigarettes/vaping Second hand tobacco smoke exposure: No Alcohol intake: never Substance use: never Substance use type: does not use Do You Feel Safe in your Home?: Yes Lack of Transportation: No Lack of Food: Never True Current Housing: I Have Housing Concerned About Future Housing: No Difficulty Paying Gas/Electric Bills: No Difficulty Paying for Meds: No Currently Unemployed: No Education: High School Diploma/GED Difficulty w/ Childcare or Family Care: No Living arrangements: other Additional living arrangements comments: live with boyfriend Occupation/Education: unemployed Additional occupation/education comments: laid off Gender identity (if verbalized by the patient): Female Sexual Orientation (if Verbalized by the Patient): Straight or Heterosexual Spiritual care concerns: No Exam Narrative: GENERAL: Well-appearing, well-nourished, and in no acute distress. HEAD: Normocephalic, atraumatic. EYES: Non injected, non icteric ENT: Nares clear, no rhinorrhea or epistaxis. NECK: Supple. CHEST: Speaking in full sentences. No respiratory distress. HEART: Regular rate and rhythm. . ABDOMEN: Soft, nondistended. Mild suprapubic TTP without rigidity/guarding. not peritoneal. : R CVA tenderness. no L CVA tenderness. EXTREMITIES: Normal range of motion. No edema. Legs are grossly symmetric. Not tender to palpation of legs, proximally or in the calves. SKIN: Warm, dry, no rash. NEURO: No focal deficits. Alert and oriented x3. PSYCH: Normal mood and affect. Course Vital Signs Vital signs: Vital Signs Temperature 97.8 F 09/02/23 14:13 Pulse Rate 90 09/02/23 14:13 Respiratory Rate 16 09/02/23 14:13 Blood Pressure 117/74 09/02/23 14:13 Pulse Oximetry 98 09/02/23 14:13 Temperature 97.2 F L 09/02/23 16:35 Pulse Rate 78 09/02/23 16:35 Respiratory Rate 18 09/02/23 16:35 Blood Pressure 114/66 09/02/23 16:35 Pulse Oximetry 100 09/02/23 16:35 MDM - Female Genitourinary MDM Narrative Medical decision making narrative: Patient is a 23 yo female who presents with concern for a UTI. In the ED she is afebrile with VS within normal limits. Based on patient's symptoms I do highly suspect urinary tract infection and given right flank pain and right CVA tenderness, highly suspicious for pyelonephritis. Otherwise young and healthy and tolerating PO so outpatient treatment should be appropriate. Will give first dose
[2023-09-02 14:13] VITALS: BP 117/74; PULSE 90; RESP 16; TEMP 36.6; O2SAT 98
[2023-09-02] MEDS: ACETAMINOPHEN 500 MG TABLET 1000 MG PO (14:21)
[2023-09-02] MEDS: ONDANSETRON HCL ODT 4 MG TABLET PO (14:21)
--- NOTE | 2023-09-02 14:24 | PC.NURSE ---
Pt states Does it matter if I am also Short of breath. Pt states I have been short of breath for the past week. Pt denies any cough, congestion, or fevers. Pt states SOB is comes and goes but is not correlated with activity. Pt states it also happens when she is resting. Pt denies any Hx of respiratory problems. EDP made aware.
[2023-09-02 14:46] LABS: Appearance Urine Turbid (Clear); Bacteria Urine Rare /hpf; Bilirubin Urine Negative (Negative); Blood Urine 3+ (Negative); Color Urine Dark Yellow (Yellow); Glucose Urine UA Negative (Negative); Ketones Urine Negative (Negative); Leukocyte Esterase Ur 3+ LEU/UL (Negative); Need Manual Microscopic Reviewed; Nitrate Urine Positive (Negative); Protein Urine 3+ mg/dL (Negative); Specific Grav Ur 1.005 (1.001-1.035); Squamous Epithelial Cell Urine None Seen /hpf (Few); WBC Urine >100 /hpf (0-3); pH Urine 6.5 (5.0-9.0)
[2023-09-02 15:01] LABS: Add Urine Microscopic? YES
[2023-09-02 15:02] LABS: Basophils Percent Auto 0.3 % (0.2-1.2); Eosinophils Absolute Auto 0.1 K/mm3 (0-0.3); Eosinophils Percent Auto 1.1 % (0-4.4); Hematocrit 41.2 % (37.0-47.0); Hemoglobin 13.7 g/dL (12.0-15.0); Immature Granulocyte Absolute 0.05 K/mm3 (0.00-0.031); Immature Granulocyte Percent A 0.4 % (0-0.5); Lymphocytes Absolute Auto 1.11 K/mm3 (0.9-3.2); Lymphocytes Percent Auto 9.5 % (18.3-44.2); Mean Corpuscular HGB Conc 33.3 g/dl (32-36); Mean Corpuscular Hemoglobin 30.4 pg (26-34); Mean Corpuscular Volume 91.6 fl (80-100); Mean Platelet Volume 10.4 fl (7.4-10.4); Monocytes Absolute Auto 0.6 K/mm3 (0.1-0.6); Monocytes Percent Auto 5.1 % (2.6-8.5); Neutrophils Absolute Auto 9.8 K/mm3 (1.3-6.7); Neutrophils Percent Auto 83.6 % (45.5-73.1); Platelet Count Result 187 k/mm3 (150-375); Red Cell Distribution Width 12.5 % (11.5-14.5); White Blood Count 11.7 K/mm3 (4.5-10.0)
[2023-09-02 15:14] LABS: Anion Gap 9 mmol/L (4-12); Blood Urea Nitrogen 11 mg/dL (7-17); Calcium 9.1 mg/dL (8.4-10.2); Carbon Dioxide 23 mmol/L (22-30); Chloride 106 mmol/L (98-107); Estimated CRCL calculation 96 ml/min; Estimated Glomerular Filt Rate > 60; Glucose 108 mg/dL (65-110); Potassium 3.6 mmol/L (3.4-5.0); Sodium 138 mmol/L (137-145)
[2023-09-02 15:43] LABS: Influenza A QL RT-PCR Negative (Negative); Influenza B QL RT-PCR Negative (Negative); RSV RNA, RT-PCR Negative (Negative); SARS-CoV-2 RNA PCR Negative (Negative)
[2023-09-02 16:03] LABS: D Dimer 0.52 ug/mL (<0.48)
[2023-09-02 16:35] VITALS: BP 114/66; PULSE 78; RESP 18; TEMP 36.2; O2SAT 100
== END 2023-09-02 16:40 | disposition home or self-care (01) ==
PROVIDERS: Emergency Provider Student in an Organized Health Care Education/Training Program; PCP Obstetrics & Gynecology
DX: N12 Tubulo-interstitial nephritis, not specified as acute or chronic (principal); D72.829 Elevated white blood cell count, unspecified; R06.02 Shortness of breath; Z20.822 Contact with and (suspected) exposure to COVID-19; Z87.891 Personal history of nicotine dependence; Z79.3 Long term (current) use of hormonal contraceptives
CPT/HCPCS: 36415; 71045; 80048; 81001; 81025; 85025; 85380; 87077; 87086; 87088; 87186; 87637; 96365; 99284; A9270; J0696

== ENCOUNTER 2024-02-09 09:54 | Outpatient (CLI) | payer OTHER, SELFPAY ==
[2024-02-09 10:41] LABS: Basophils Percent Auto 0.5 % (0.2-1.2); Eosinophils Absolute Auto 0.2 K/mm3 (0-0.3); Eosinophils Percent Auto 4.1 % (0-4.4); Hematocrit 41.5 % (37.0-47.0); Hemoglobin 13.3 g/dL (12.0-15.0); Immature Granulocyte Absolute 0.01 K/mm3 (0.00-0.031); Immature Granulocyte Percent A 0.2 % (0-0.5); Lymphocytes Absolute Auto 1.04 K/mm3 (0.9-3.2); Lymphocytes Percent Auto 23.6 % (18.3-44.2); Mean Corpuscular Hemoglobin 30.5 pg (26-34); Mean Corpuscular Volume 95.2 fl (80-100); Mean Platelet Volume 10.9 fl (7.4-10.4); Monocytes Absolute Auto 0.3 K/mm3 (0.1-0.6); Monocytes Percent Auto 6.4 % (2.6-8.5); Neutrophils Absolute Auto 2.9 K/mm3 (1.3-6.7); Neutrophils Percent Auto 65.2 % (45.5-73.1); Platelet Count Result 226 k/mm3 (150-375); Red Blood Count 4.36 M/mm3 (4.2-5.4); Red Cell Distribution Width 12.8 % (11.5-14.5); White Blood Count 4.4 K/mm3 (4.5-10.0)
[2024-02-09 11:43] LABS: Beta HCG Quantitative < 2.39 mIU/ML
[2024-02-09 12:16] LABS: Iron 73 ug/dL (37-170); Percent Iron Saturation 21 % (20-50)
[2024-02-09 12:42] LABS: Ferritin 8.43 ng/mL (6.24-137)
[2024-02-11 02:54] LABS: Prolactin 6.4 ng/mL
== END 2024-02-09 09:55 | disposition home or self-care (01) ==
LOC: ANHLAB 09:55
PROVIDERS: PCP Physician Assistant; Visit Provider Obstetrics & Gynecology
DX: N93.9 Abnormal uterine and vaginal bleeding, unspecified (principal)
CPT/HCPCS: 36415; 82728; 83540; 83550; 84146; 84402; 84403; 84443; 84702; 85025

== ENCOUNTER 2024-07-09 15:57 | Emergency (ER) | payer OTHER, SELFPAY ==
--- NOTE | 2024-07-09 15:58 | ED.URI ---
HPI - URI/Sore Throat General Chief Complaint: Nausea/Vomiting/Diarrhea Stated Complaint: doctor's note...cough,sneezing,throwing up Time Seen by Provider: 07/09/24 15:58 Source: patient Mode of arrival: ambulatory Limitations: no limitations History of Present Illness HPI Narrative: Jayne is a 24-year-old female patient presenting to the clinic today with complaints of coughing, sneezing, runny nose, and vomiting. She reports symptoms have been going on for approximately 2 weeks. She has been throwing up at least twice daily. Denies any nausea at this time. She denies any fevers, chills, or body aches. Denies any chest pain. Does report some shortness of breath at times. Related Data Home Medications ?Medication ?Instructions ?Recorded ?Confirmed ?Last Taken ?Type ferrous sulfate 325 mg (65 mg 325 mg PO DAILY 04/13/24 04/13/24 Unknown History iron) tablet (Feosol) Allergies Allergy/AdvReac Type Severity Reaction Status Date / Time No Known Allergies Allergy Verified 07/09/24 15:59 Review of Systems Review of Systems: Pertinent positives per HPI. Patient denies any fever, chills, rash, headache, visual changes, dizziness, chest pain, palpitations, nausea, vomiting, diarrhea, constipation, abdominal pain, or any urinary issues. [facility] Past Medical History Medical History History of UTI Anxiety Surgical History Surgical History History of section Hx of tonsillectomy Family History Family History Grandparent Hypertension maternal grandfather Diabetes mellitus maternal grandmother Other Unknown family medical history Social History Social History Smoking status: Current every day smoker Tobacco type: e-cigarettes/vaping Second hand tobacco smoke exposure: No Alcohol intake: never Substance use: never Substance use type: does not use Do You Feel Safe in your Home?: Yes Lack of Transportation: No Lack of Food: Never True Current Housing: I Have Housing Concerned About Future Housing: No Difficulty Paying Gas/Electric Bills: No Difficulty Paying for Meds: No Currently Unemployed: No Education: High School Diploma/GED Difficulty w/ Childcare or Family Care: No Living arrangements: other Additional living arrangements comments: live with boyfriend Occupation/Education: occupation Additional occupation/education comments: [employer] Gender identity (if verbalized by the patient): Female Sexual Orientation (if Verbalized by the Patient): Straight or Heterosexual Spiritual care concerns: No Comments At the time of my signature, I reviewed and agree with the nursing past medical, surgical, social, and family history. There is no relevant family history pertinent to the patient complaint. Exam Narrative: General: Well-developed, well nourished, in no apparent distress Head: Normocephalic, atraumatic Eyes: Pupils equally round and reactive to light bilaterally, EOM intact, sclera and conjunctive clear, no discharge, lids normal Ears: TMs intact and clear, ear canals clear, no drainage, grossly hearing normal. Nose: Nares patent, clear nasal discharge, no inflammation, no sinus tenderness. Mouth: Oral pharynx red without lesions or masses, good dentition, MMM. Postnasal drip Neck: Supple, trachea midline, no enlargement of anterior or posterior cervical nodes, no thyroid masses or goiter palpable. Cardio: Regular rate and rhythm, s1 and s2 normal, no murmur appreciated. Resp: Expiratory wheezing, no rhonchi, rales,or rubs Course Course Emergency Course: Portions of this record may have been created with voice recognition software. Level of Care: Express Care Visit Vital Signs Vital signs: Vital signs reviewed MDM - URI/Sore Throat MDM Narrative Medical decision making narrative: At the time of visit patient is resting comfortably on the exam table. Patient appears to be nontoxic. Labs: COVID, influenza, and strep test were all negative in the clinic today. We will send strep for culture. Plan: I suspect patient has bronchitis/URI. Prescription for albuterol inhaler and prednisone was sent to the pharmacy. Supportive measures were discussed with the patient and they voiced understanding discharge instructions and agrees to treatment plan. Return precautions reviewed Differential Diagnosis Differential diagnosis: Likely upper respiratory infection, otitis media, sinusitis, viral infection, bronchitis, influenza, pharyngitis and other (COVID) Discharge Plan Discharge Clinical Impression: Upper respiratory infection with cough and congestion, Bronchitis Patient Disposition: Home Condition: Stable Instructions: Antibiotic Form, Upper Respiratory Infection (ED), Acute Bronchitis (ED) Additional Instructions: COVID, influenza, and strep test were all negative in the clinic today. We will send strep for culture Take prescription medications only as prescribed-prednisone and albuterol inhaler Increase fluids and stay well hydrated Tylenol/motrin for pain/fever Flonase and OTC antihistamines as directed Vicks vapor rub to open sinuses Sinus rinses for congestion Cepacol spray, cough drops, throat lozenges, warm tea with honey/lemon, gargle salt water to soothe throat BRAT diet for diarrhea Clear liquids x 24 hours then advance as tolerated for nausea/vomiting Go to the ED if you develop a worsening in your condition- high fever not controlled by Tylenol or Motrin, dehydration, weakness, lethargy, shortness of breath, or chest pain. Follow up with your PCP in 3-5 days if symptoms persist. Patient Language: Slovenian Prescriptions: New albuterol sulfate 90 mcg/actuation HFA aerosol inhaler 2 puff inhalation Q4-6H PRN (Reason: shortness of breath or wheezing) 30 Days Qty: 8.5 0RF prednisone 20 mg tablet 40 mg PO DAILY 5 Days Qty: 10 0RF No Action ferrous sulfate [Feosol] 325 mg (65 mg iron) tablet 325 mg PO DAILY norgestimate-ethinyl estradiol [Sprintec (28)] 0.25-35 mg-mcg tablet 1 tablet PO Q24H Qty: 112 4RF Rx Instructions: take in a continuous manner skipping the placebo to only have a period once every 3 months Follow-up/Referrals: PHYSICIAN,GOVERNMENT AFFAIRS SPECIALIST [Primary Care Provider] - Stand Alone Forms: Work/School Release IP Time of Disposition: 17:01 Quality NIHSS Nursing Documentation ED NIHSS nursing documentation: reviewed/agree
[2024-07-09 16:18] VITALS: BP 109/61; PULSE 74; RESP 18; TEMP 36.6; O2SAT 100
[2024-07-09 16:25] LABS: EDSTREPNEGPOS1 Negative (Negative)
[2024-07-09 16:27] LABS: EDSTREPNEGPOS1 Negative (Negative)
[2024-07-09 16:36] LABS: EDCOVIDSCREEN Negative (Negative); EDINFLUASCREEN Negative (Negative); EDINFLUBSCREEN Negative (Negative)
== END 2024-07-09 17:05 | disposition home or self-care (01) ==
PROVIDERS: Emergency Provider Nurse Practitioner Family
DX: J06.9 Acute upper respiratory infection, unspecified (principal); R05.9 Cough, unspecified; J40 Bronchitis, not specified as acute or chronic; Z20.822 Contact with and (suspected) exposure to COVID-19; F17.290 Nicotine dependence, other tobacco product, uncomplicated
CPT/HCPCS: 87081; 87426; 87804; 87880; 99213; G0463

== ENCOUNTER 2024-11-17 17:35 | Emergency (ER) | payer OTHER, SELFPAY ==
[2024-11-17] VITALS (15 sets, daily range): BP systolic 97–125; BP diastolic 53–81; PULSE 91–126; RESP 15–49; TEMP 37.8–39.4; O2SAT 95–99
--- NOTE | ~2024-11-17 | CT_ITS ---
EXAMINATION: CT abdomen pelvis w con DATE: 11/17/2024 19:55 INDICATION: Lower abdominal pain TECHNIQUE: Computed tomography (CT) of the abdomen and pelvis was performed with 100 cc Omnipaque 350 intravenous contrast. The dose-length product was 224.69 mGy-cm. Automated exposure control and iterative reconstruction technique were employed. COMPARISON: CT dated 09/10/2022 FINDINGS: Lung bases are unremarkable. Heart size normal. No significant pleural or pericardial effusion. There are multiple splenic cysts. The liver, pancreas, adrenal glands and kidneys are unremarkable. There is an IUD in the endometrium. Small amount of free fluid in the pelvis. Bladder wall is mildly prominent, although not well distended. Nonobstructive bowel gas pattern. No acute osseous abnormality. No free air. No lymphadenopathy. IMPRESSION: 1. Mild thickening of the bladder wall, although not distended. Recommend clinical correlation to exclude cystitis. Reviewed, dictated and finalized at location O. IMPRESSION: 1. Mild thickening of the bladder wall, although not distended. Recommend clini tawny correlation to exclude cystitis.
--- NOTE | ~2024-11-17 | XR_ITS ---
EXAMINATION: XR chest 2V 11/17/2024 21:07 INDICATION: Intermittent shortness of breath PROCEDURE: 2 view chest COMPARISON: 09/02/2023 FINDINGS: The lungs are clear. The cardiomediastinal silhouette is within normal limits. There are no pleural effusions. There is no pneumothorax suspected. IMPRESSION: 1: NO ACUTE CARDIOPULMONARY DISEASE. Reviewed, dictated and finalized at location O.
--- NOTE | 2024-11-17 18:29 | ED_ITS ---
HPI - General Adult General Chief complaint: Unspecified Stated complaint: headache Time Seen by Provider: 11/17/24 17:56 History of Present Illness HPI narrative: This is a 24-year-old female with no significant past medical history presents the ED for body aches. Patient does not participate much and history taking. Friends at bedside states that patient began complaining of diffuse body aches this morning and she has been relatively inactive since then. Patient reports a subjective fever. She is not taking any medicines for this. She has had nausea but no vomiting. Does report lower abdominal pain. Last normal menstrual period was a week ago. Related Data Home Medications ?Medication ?Instructions ?Recorded ?Confirmed ?Last Taken ?Type levonorgestrel (Mirena) 1 device intrauterine ONCE 0 08/10/24 09/20/24 Unknown History Allergies Allergy/AdvReac Type Severity Reaction Status Date / Time doxycycline Allergy Difficulty Verified 11/17/24 17:37 Swallowing acetaminophen (From Percocet) AdvReac Severe Swelling Verified 11/17/24 17:37 oxycodone (From Percocet) AdvReac Severe Swelling Verified 11/17/24 17:37 Review of Systems 2 Review of Systems: Gen.: As per HPI Eyes: Denies eye pain or visual change ENT: Denies congestion Respiratory: Denies shortness of breath or cough CV: Denies chest pain or palpitations GI: As per HPI denies burning, urgency, frequency or hematuria Musculoskeletal: Denies back pain or muscle pain Neuro: Denies numbness, tingling, weakness or focal weakness Skin: Denies rash Except as documented, all other systems reviewed and negative PMF Past Medical History Medical History History of UTI Anxiety Surgical History Surgical History History of section Hx of tonsillectomy Family History Family History Grandparent Hypertension maternal grandfather Diabetes mellitus maternal grandmother Other Unknown family medical history Social History Social History Smoking status: Current every day smoker Tobacco type: e-cigarettes/vaping Second hand tobacco smoke exposure: No Alcohol intake: never Substance use: current Substance use type: marijuana Do You Feel Safe in your Home?: Yes Lack of Transportation: No Lack of Food: Never True Current Housing: I Have Housing Concerned About Future Housing: No Difficulty Paying Gas/Electric Bills: No Difficulty Paying for Meds: No Currently Unemployed: No Education: High School Diploma/GED Difficulty w/ Childcare or Family Care: No Living arrangements: other Additional living arrangements comments: live with boyfriend Occupation/Education: occupation Additional occupation/education comments: [employer] Gender identity (if verbalized by the patient): Female Sexual Orientation (if Verbalized by the Patient): Straight or Heterosexual Spiritual care concerns: No Exam 2 Narrative: APPEARANCE: In mild distress lying in bed EYES: EOMI HEENT: Normocephalic, atraumatic, OMM RESPIRATORY: No respiratory distress Clear to auscultation bilaterally with no rhonchi wheezing or rales. CARDIOVASCULAR: Tachycardic, regular rhythm without murmurs rubs or gallops. ABDOMINAL: Soft, tenderness to palpation to the suprapubic abdomen without rebound or guarding. MUSCULOSKELETAl: Moves all extremities. No clubbing, cyanosis or edema. NEURO: Awake and alert. Following commands, speech normal, no focal deficits SKIN:: Warm, dry. No rashes lesions or abrasions PSYCHIATRIC: Normal affect/mood, Course Vital Signs Vital signs: Vital Signs Temperature 100.0 F H 11/17/24 17:46 Pulse Rate 125 H 11/17/24 17:46 Respiratory Rate 23 H 11/17/24 17:46 Blood Pressure 97/74 L 11/17/24 17:46 Pulse Oximetry 99 11/17/24 17:46 Temperature 100.7 F H 11/17/24 20:04 Pulse Rate 91 11/17/24 21:30 Respiratory Rate 15 11/17/24 21:30 Blood Pressure 108/54 L 11/17/24 20:31 Pulse Oximetry 98 11/17/24 20:04 Oxygen Delivery Autopap 11/17/24 18:56 Medical Decision Making [facility] Narrative Medical decision making narrative: 24-year-old female who presents to the ED for lower abdominal pain and low back pain. Patient was some of his history. On initial evaluation, she was uncomfortable appearing moaning answers about to 102.9. She was given Toradol, 2L NS bolus. No leukocytosis. CMP without significant findings. CRP slightly elevated. UA showed blood without evidence of UTI. UDS negative. CT abdomen/pelvis showed mild thickening of the bladder wall but no other significant abnormalities. Lactic acid was within limits. On further review of medical records, patient was diagnosed with chlamydia 2 months ago. Patient very well could PID this she was given Zosyn she continued discomfort and was still rather somnolent. Chest x-ray was subsequently obtained to his pneumonia. After 2 L total of normal saline and Tylenol, discussed options with the patient and she was more awake at this point. She was able ambulate to bathroom without any assistance. Feel much more comfortable about patient discharging home with antibiotics. She will be covered for PID at this point. Given her prior allergy to doxycycline. She will be given Levaquin and metronidazole in lieu of that. She was advised to follow-up with her OBGYN in the next few days for evaluation. Patient was agreeable to this plan. Given strict return precautions. Differential Diagnosis Differential Diagnosis: PID, constant pneumonia UTI tubo-ovarian abscess Medical Records Medical records reviewed: Yes I reviewed the external patient's medical records. Vital Signs Vital Signs: Vital Signs Temperature 100.0 F H 11/17/24 17:46 Pulse Rate 125 H 11/17/24 17:46 Respiratory Rate 23 H 11/17/24 17:46 Blood Pressure 97/74 L 11/17/24 17:46 Pulse Oximetry 99 11/17/24 17:46 Temperature 100.7 F H 11/17/24 20:04 Pulse Rate 91 11/17/24 21:30 Respiratory Rate 15 11/17/24 21:30 Blood Pressure 108/54 L 11/17/24 20:31 Pulse Oximetry 98 11/17/24 20:04 Oxygen Delivery Autopap 11/17/24 18:56 Lab Data Lab results reviewed: Yes I reviewed the patient's lab results. 11/17/24 20:04 11/17/24 19:00 Labs: Lab Results 11/17/24 11/17/24 11/17/24 Range/Units 17:58 18:55 19:00 WBC 6.4 (4.5-10.0) K/mm3 RBC 4.59 (4.2-5.4) M/mm3 Hgb 14.0 (12.0-15.0) g/dL Hct 40.7 (37.0-47.0) % MCV 88.7 (80-100) fl MCH 30.5 (26-34) pg MCHC 34.4 (32-36) g/dl RDW 12.0 (11.5-14.5) % Plt Count 183 (150-375) k/mm3 MPV 11.2 H (7.4-10.4) fl Immature Gran % (Auto) 0.3 (0-0.5) % Neut % (Auto) 84.0 H (45.5-73.1) % Lymph % (Auto) 9.1 L (18.3-44.2) % [place] % (Auto) 6.3 (2.6-8.5) % Eos % (Auto) 0.0 (0-4.4) % Baso % (Auto) 0.3 (0.2-1.2) % Lymph # (Auto) 0.58 L (0.9-3.2) K/mm3 [place] # (Auto) 0.4 (0.1-0.6) K/mm3 Eos # (Auto) 0.0 (0-0.3) K/mm3 Baso # (Auto) 0.0 (0.0-0.1) K/mm3 Abs Immat Gran (auto) 0.02 (0.00-0.031) K/mm3 Absolute Neuts (auto) 5.3 (1.3-6.7) K/mm3 Absolute Nucleated RBC 0.000 (0.0-0.012) K/mm3 Nucleated RBC % 0.0 (0.0-0.2) % Sodium 134 L (137-145) mmol/L Potassium 3.7 (3.4-5.0) mmol/L Chloride 99 (98-107) mmol/L Carbon Dioxide 23 (22-30) mmol/L Anion Gap 12 (4-12) mmol/L BUN 10 (7-17) mg/dL Creatinine 0.77 (0.7-1.0) mg/dL Estim Creat Clear Calc 83 ml/min Estimated GFR > 60 (59 - ) Glucose 92 (65-110) mg/dL Lactic Acid (0.7-2.0) mmol/L Calcium 9.4 (8.4-10.2) mg/dL Total Bilirubin 1.1 (0.2-1.3) mg/dL AST 28 (14-36) U/L ALT 18 (6-35) U/L Alkaline Phosphatase 73 (38-126) U/L C-Reactive Protein 1.7 H (<1.0) mg/dL Total Protein 8.4 H (6.3-8.2) g/dL Albumin 4.9 (3.5-5.1) g/dL Lipase 61 (23-300) U/L Serum HCG, Qual Negative Urine Color Yellow (Yellow) Urine Appearance Clear (Clear) Urine pH 8.5 (5.0-9.0) Ur Specific [place] 1.010 (1.001-1.035) Urine Protein Negative (Negative) mg/dL Urine Glucose (UA) Negative (Negative) mg/dL Urine Ketones 1+ H (Negative) mg/dL Ur Blood (Man) 2+ H (Negative) Urine Nitrate Negative (Negative) Urine Bilirubin Negative (Negative) Urine Urobilinogen 0.2 (<2.0) mg/dL Leukocyte Esterase Rfl Negative (Negative) JUNE/UL Urine RBC 21-50 H (0-2) /hpf Urine WBC 0-5 (0-3) /hpf Ur Squamous Epith Cells None seen (Few) /hpf Urine Bacteria None seen /hpf Urine Casts 0-2 POC Urine HCG, Qual Negative (Negative) Urine Opiates Screen Negative (Negative) Urine Methadone Screen Negative (Negative) Ur Barbiturates Screen Negative (Negative) Ur Phencyclidine Scrn Negative (Negative) Ur Amphetamine Screen Negative (Negative) U Benzodiazepines Scrn Negative (Negative) Urine Cocaine Screen Negative (Negative) U Cannabinoids Screen Negative (Negative) Influenza A (RT-PCR) Negative (Negative) Influenza B (RT-PCR) Negative (Negative) RSV (RT-PCR) Negative (Negative) SARS-CoV-2 RNA (RT-PCR) Negative (Negative) 11/17/24 Range/Units 20:04 WBC 5.8 (4.5-10.0) K/mm3 RBC 3.93 L (4.2-5.4) M/mm3 Hgb 11.8 L (12.0-15.0) g/dL Hct 36.1 L (37.0-47.0) % MCV 91.9 (80-100) fl MCH 30.0 (26-34) pg MCHC 32.7 (32-36) g/dl RDW 11.9 (11.5-14.5) % Plt Count 148 L (150-375) k/mm3 MPV 10.5 H (7.4-10.4) fl Immature Gran % (Auto) 0.3 (0-0.5) % Neut % (Auto) 86.1 H (45.5-73.1) % Lymph % (Auto) 6.8 L (18.3-44.2) % [place] % (Auto) 6.6 (2.6-8.5) % Eos % (Auto) 0.0 (0-4.4) % Baso % (Auto) 0.2 (0.2-1.2) % Lymph # (Auto) 0.39 L (0.9-3.2) K/mm3 [place] # (Auto) 0.4 (0.1-0.6) K/mm3 Eos # (Auto) 0.0 (0-0.3) K/mm3 Baso # (Auto) 0.0 (0.0-0.1) K/mm3 Abs Immat Gran (auto) 0.02 (0.00-0.031) K/mm3 Absolute Neuts (auto) 5.0 (1.3-6.7) K/mm3 Absolute Nucleated RBC 0.000 (0.0-0.012) K/mm3 Nucleated RBC % 0.0 (0.0-0.2) % Sodium (137-145) mmol/L Potassium (3.4-5.0) mmol/L Chloride (98-107) mmol/L Carbon Dioxide (22-30) mmol/L Anion Gap (4-12) mmol/L BUN (7-17) mg/dL Creatinine (0.7-1.0) mg/dL Estim Creat Clear Calc ml/min Estimated GFR (59 - ) Glucose (65-110) mg/dL Lactic Acid 1.3 (0.7-2.0) mmol/L Calcium (8.4-10.2) mg/dL Total Bilirubin (0.2-1.3) mg/dL AST (14-36) U/L ALT (6-35) U/L Alkaline Phosphatase (38-126) U/L C-Reactive Protein (<1.0) mg/dL Total Protein (6.3-8.2) g/dL Albumin (3.5-5.1) g/dL Lipase (23-300) U/L Serum HCG, Qual Urine Color (Yellow) Urine Appearance (Clear) Urine pH (5.0-9.0) Ur Specific [place] (1.001-1.035) Urine Protein (Negative) mg/dL Urine Glucose (UA) (Negative) mg/dL Urine Ketones (Negative) mg/dL Ur Blood (Man) (Negative) Urine Nitrate (Negative) Urine Bilirubin (Negative) Urine Urobilinogen (<2.0) mg/dL Leukocyte Esterase Rfl (Negative) JUNE/UL Urine RBC (0-2) /hpf Urine WBC (0-3) /hpf Ur Squamous Epith Cells (Few) /hpf Urine Bacteria /hpf Urine Casts POC Urine HCG, Qual (Negative) Urine Opiates Screen (Negative) Urine Methadone Screen (Negative) Ur Barbiturates Screen (Negative) Ur Phencyclidine Scrn (Negative) Ur Amphetamine Screen (Negative) U Benzodiazepines Scrn (Negative) Urine Cocaine Screen (Negative) U Cannabinoids Screen (Negative) Influenza A (RT-PCR) (Negative) Influenza B (RT-PCR) (Negative) RSV (RT-PCR) (Negative) SARS-CoV-2 RNA (RT-PCR) (Negative) Imaging Data Radiologist's impression: Impressions Abdomen/Pelvis CT 11/17/24 20:04 IMPRESSION: 1. Mild thickening of the bladder wall, although not distended. Recommend clinical correlation to exclude cystitis. Chest X-Ray 11/17/24 21:15 IMPRESSION: 1: NO ACUTE CARDIOPULMONARY DISEASE. Discharge Plan Discharge Clinical Impression: Acute pelvic inflammatory disease (PID) Patient Disposition: Home Condition: Stable Instructions: Antibiotic Form, Pelvic Inflammatory Disease (ED) Additional Instructions: Take levofloxacin, metronidazole, and Zofran as prescribed. Follow-up with your OBGYN in the next couple days for re-evaluation. Return to the ED for any new or worsening symptoms. For pain, discomfort or temperature greater than or equal to 100.8 ?F please alternate the following 2 medications as needed. First medication- acetaminophen/Tylenol- 1000mg every 6-8 hours as needed for above indications. Second medication- ibuprofen/Motrin-600mg every 6-8 hours as needed for above indication. Patient Language: Occitan Prescriptions: New levofloxacin 500 mg tablet 500 mg PO DAILY Qty: 14 0RF metronidazole 500 mg tablet 500 mg PO Q12H 14 Days Qty: 28 0RF ondansetron 4 mg tablet,disintegrating 4 mg PO Q8H PRN (Reason: nausea and vomiting) Qty: 14 0RF No Action albuterol sulfate 90 mcg/actuation HFA aerosol inhaler 2 puff inhalation Q4-6H PRN (Reason: shortness of breath or wheezing) 30 Days Qty: 8.5 0RF Mirena 21 mcg/24hr (up to 8 yrs) 52 mg intrauterine device 1 device intrauterine ONCE Rx Instructions: as a single dose Follow-up/Referrals: UNKNOWN,DOCTOR [Primary Care Provider]
[2024-11-17 18:42] LABS: Influenza A QL RT-PCR Negative (Negative); Influenza B QL RT-PCR Negative (Negative); RSV RNA, RT-PCR Negative (Negative); SARS-CoV-2 RNA PCR Negative (Negative)
[2024-11-17 18:56] LABS: BEDSIDEPREGUCG Negative (Negative)
[2024-11-17] MEDS: ONDANSETRON INJ 4 MG/2 ML VIAL IV PUSH (18:57)
[2024-11-17] MEDS: SODIUM CHLORIDE 0.9% IV 1,000 ML 999 ML IV CONT ×2 (18:58→20:34)
[2024-11-17] MEDS: KETOROLAC 15 MG/ML VIAL (*BKC) IV PUSH (18:58)
[2024-11-17 19:10] LABS: Hematocrit 40.7 % (37.0-47.0); Hemoglobin 14.0 g/dL (12.0-15.0); Immature Granulocyte Percent A 0.3 % (0-0.5); Lymphocytes Absolute Auto 0.58 K/mm3 (0.9-3.2); Mean Corpuscular HGB Conc 34.4 g/dl (32-36); Mean Corpuscular Hemoglobin 30.5 pg (26-34); Mean Corpuscular Volume 88.7 fl (80-100); Nucleated Red Blood Cells Absolute Auto 0.000 K/mm3 (0.0-0.012); Nucleated Red Blood Cells Perc 0.0 % (0.0-0.2); Platelet Count Result 183 k/mm3 (150-375); Red Blood Count 4.59 M/mm3 (4.2-5.4); White Blood Count 6.4 K/mm3 (4.5-10.0)
[2024-11-17] MEDS: ACETAMINOPHEN 500 MG TABLET 1000 MG (19:10)
--- NOTE | 2024-11-17 19:10 | PC.NURSE ---
pt had a 102.9 fever, EDP DR. Rivera gave verbal order for 1000mg of tylenol
[2024-11-17 19:13] LABS: SPREG INTERNAL CONTROL Positive; Serum Qual hCG Negative
[2024-11-17 19:26] LABS: Alanine Aminotransferase 18 U/L (6-35); Albumin Level 4.9 g/dL (3.5-5.1); Alkaline Phosphatase 73 U/L (38-126); Anion Gap 12 mmol/L (4-12); Aspartate Amino Transferase 28 U/L (14-36); Bilirubin,Total 1.1 mg/dL (0.2-1.3); Blood Urea Nitrogen 10 mg/dL (7-17); Calcium 9.4 mg/dL (8.4-10.2); Carbon Dioxide 23 mmol/L (22-30); Chloride 99 mmol/L (98-107); Estimated CRCL calculation 83 ml/min; Estimated Glomerular Filt Rate > 60; Glucose 92 mg/dL (65-110); Lipase 61 U/L (23-300); Potassium 3.7 mmol/L (3.4-5.0); Sodium 134 mmol/L (137-145); Total Protein 8.4 g/dL (6.3-8.2)
[2024-11-17 19:31] LABS: Non Pathogenic Casts 0-2
[2024-11-17 19:40] LABS: CRP 1.7 mg/dL (<1.0)
[2024-11-17 20:09] LABS: Hematocrit 36.1 % (37.0-47.0); Hemoglobin 11.8 g/dL (12.0-15.0); Immature Granulocyte Percent A 0.3 % (0-0.5); Lymphocytes Absolute Auto 0.39 K/mm3 (0.9-3.2); Mean Corpuscular HGB Conc 32.7 g/dl (32-36); Mean Corpuscular Hemoglobin 30.0 pg (26-34); Mean Corpuscular Volume 91.9 fl (80-100); Nucleated Red Blood Cells Absolute Auto 0.000 K/mm3 (0.0-0.012); Nucleated Red Blood Cells Perc 0.0 % (0.0-0.2); Platelet Count Result 148 k/mm3 (150-375); Red Blood Count 3.93 M/mm3 (4.2-5.4); White Blood Count 5.8 K/mm3 (4.5-10.0)
[2024-11-17 20:11] LABS: Add Urine Microscopic? YES; Appearance Urine Clear (Clear); Glucose Urine UA Negative (Negative); Leukocyte Esterase Ur Negative LEU/UL (Negative); Nitrate Urine Negative (Negative); Specific Grav Ur 1.010 (1.001-1.035)
[2024-11-17] MEDS: PIPERACILLIN/TAZOBACTAM SOD 4.5 GM in SODIUM CHLORIDE 0.9% IV 100 ML 200 ML IVPB (20:54)
[2024-11-17 21:09] LABS: Cannabinoid Screen Urine Negative (Negative)
== END 2024-11-17 22:12 | disposition home or self-care (01) ==
PROVIDERS: Emergency Provider Student in an Organized Health Care Education/Training Program
DX: N73.9 Female pelvic inflammatory disease, unspecified (principal); Z20.822 Contact with and (suspected) exposure to COVID-19; F17.290 Nicotine dependence, other tobacco product, uncomplicated; Z87.440 Personal history of urinary (tract) infections; Z97.5 Presence of (intrauterine) contraceptive device
CPT/HCPCS: 36415; 71046; 74177; 80053; 80307; 81001; 81025; 83605; 83690; 84703; 85025; 86140; 87040; 87637; 96361; 96365; 96375; 99284; A9270; J1885; J2405; J2543; J7030; Q9967